=== PATIENT | male | born 1985 | race Caucasian/White ===

== ENCOUNTER 2019-05-20 22:59 | Inpatient (IN) | payer SELFPAY ==
[2019-05-20 23:04] VITALS: BP 132/104; PULSE 120; RESP 16; TEMP 37; O2SAT 99; BMI 24.3
--- NOTE | 2019-05-21 00:01 | ECG_ITS ---
Measurements Intervals [place] Rate: 80 P: 64 KS: 168 QRS: 58 QRSD: 113 T: 51 QT: 386 QTc: 448 SINUS RHYTHM POSSIBLE LATERAL MYOCARDIAL INFARCTION [30 ms Q WAVE IN I/aVL/V5/V6], PROBABLY OLD Compared to ECG 02/28/2019 22:24:04 Sinus tachycardia no longer present Myocardial infarct finding still present Electronically Signed On 05-22-2019 0:21:02 CENTRIFUGAL CASTING MACHINE OPERATOR by Elissa Murdock M.D. [email or web address]
--- NOTE | 2019-05-21 00:07 | PC.NURSE ---
patient stated he has been having SI intermittently, stated he used IV heroin and meth 2 days ago in attempt to commit suicide
[2019-05-21 00:23] LABS: Basophils # 0.1 10^3/uL (0.0-0.1); Basophils % 0.5 %; Eosinophils # 0.1 10^3/uL (0.0-0.8); Hematocrit 43.5 % (42.0-52.0); Hemoglobin 14.5 g/dL (11.7-16.6); Lymphocytes # 3.2 10^3/uL (0.8-4.8); Lymphocytes % 34.8 %; Mean Corpuscular HGB Conc 33.3 g/dL (30.0-36.0); Mean Corpuscular Hemoglobin 29.8 pg (28.0-34.0); Mean Corpuscular Volume 89.3 fL (80-94); Mean Platelet Volume 11.6 fL (7.4-10.4); Monocytes # 0.7 10^3/uL (0.2-0.9); Monocytes % 7.9 %; Neutrophils # 5.2 10^3/uL (1.8-7.7); Neutrophils % 55.6 %; Nucleated Red Blood Cells % 0 %; Platelet Count 308 10^3/cmm (130-400); Red Blood Count 4.87 10^6/uL (4.1-5.3); Red Cell Distribution Width 12.1 % (12.1-15.1); White Blood Count 9.3 10^3/uL (4.0-10.0)
[2019-05-21 00:33] LABS: Alanine Aminotransferase 19 U/L (0-41); Albumin Level 4.1 g/dL (3.5-5.2); Alkaline Phosphatase 132 IU/L (40-130); Anion Gap 15.6 (5-19); Aspartate Amino Transferase 25 U/L (0-40); Blood Urea Nitrogen 10 mg/dL (6-20); Calcium 10.1 mg/dL (8.5-10.5); Carbon Dioxide 26 mmol/L (22-29); Chloride 98 mmol/L (98-107); Creatinine Clr Calc Pharmacy 136.0705; Globulin 3.1 g/dL (1.3-4.6); Glucose 120 mg/dL (65-115); Potassium 3.6 mmol/L (3.5-5.1); Sodium 136 mmol/L (136-145); Total Bilirubin 0.6 mg/dL (0.15-1.2); Total Protein 7.2 g/dL (6.6-8.7)
[2019-05-21 00:35] LABS: Acetaminophen < 5.0 ug/mL (10-30); Alcohol Level < 10 mg/dL (0-10); Salicylate < 0.3 mg/dL (3-10)
--- NOTE | 2019-05-21 01:02 | W.ED.ANXIETY ---
HPI - Anxiety General: Chief Complaint: Anxiety Stated Complaint: SI, Anxiety Time Seen by Provider: 05/20/19 23:37 Source: patient Mode of arrival: ambulatory Limitations: no limitations History of Present Illness: HPI narrative: Patient is a 33-year-old male who presents to ED today with complaints of anxiety and suicidal ideations. Patient states that he just feels drained . He reports yesterday he tried to purposely overdose on heroin. He reports also doing methamphetamine. He is supposed to be taking Suboxone but has missed his clinic appointments and therefore has relapsed back to taking heroin. He denies suicidal or homicidal ideations. He tells me at one point he believes over the past few days he has had seizures. He tells me he has had seizures previously but has never had any neurology evaluation for these. MD complaint: anxiety and other (Depression, suicidal ideation) Onset (ago): day(s) Associated symptoms: Deny chest pain, chills, fever(s), headache(s), malaise, nausea, palpitations, syncope or vomiting Review of Systems Const: Denies: fever, chills, body aches, change in appetite, change in weight, fatigue or malaise Eyes: Denies: change in vision or blurry vision ENMT: Denies: enlarged tonsils or painful swallowing Card: Denies: chest pain, palpitations, irregular heart rhythm, edema, lightheadedness, syncope or pre-syncope Resp: Denies: shortness of breath, productive cough or chest congestion GI: Denies: abdominal pain, nausea, vomiting, vomiting blood or diarrhea : Denies: flank pain, difficulty urinating, painful urination, urinary frequency or urinary urgency Musc: Denies: neck pain or back pain Skin/Breast: Denies: rash Neuro: Denies: headache Psych: Reports: anxiety, depression, hopelessness and suicidal ideation; Denies: visual hallucinations, auditory hallucinations or homicidal ideation PFSH ED PFSH: Statuses (acute, chronic, etc) shown below reflect problem list status as previously entered and may not be historically accurate Social History Smoking and tobacco status: current every day smoker Physical Exam Const: COMMON NORMALS: no apparent distress, oriented x3, no limitations and alert Resp: COMMON NORMALS: normal respiratory effort and clear to auscultation bilaterally AUSCULTATION: clear to auscultation bilaterally Cardio: COMMON NORMALS: regular rate and regular rhythm RATE: regular rate RHYTHM: regular rhythm Neuro: COMMON NORMALS: oriented x3, CN's II-XII intact bilaterally, moves all extremities, no focal motor deficits and no sensory deficits noted SENSORIUM/ORIENTATION: Yes alert Psych: COMMON NORMALS: mental status grossly normal, cooperative, denies hallucinations and denies homicidal ideation APPEARANCE: Yes grossly normal ATTITUDE: Yes calm ACTIVITY/MOTOR BEHAVIOR: Yes appropriate eye contact SPEECH: Yes pressured ATTENTION/CONCENTRATION: Yes attention grossly intact and Yes concentration grossly intact MEMORY/COGNITION: Yes memory grossly intact and Yes cognition grossly intact INSIGHT: fair JUDGEMENT: fair Course Consultations: Consultation #1: Dr. Lowry-accepts to NPU Time: 01:14 Vital Signs: Vital signs: Vital Signs Temperature 98.6 F 05/20/19 23:04 Pulse Rate 120 H 05/20/19 23:04 Respiratory Rate 16 05/20/19 23:04 Blood Pressure 132/104 05/20/19 23:04 Pulse Oximetry 99 05/20/19 23:04 MDM - Anxiety Lab Data: Labs: Lab Results 05/21/19 05/21/19 Range/Units 00:10 00:10 WBC 9.3 (4.0-10.0) 10^3/ uL RBC 4.87 (4.1-5.3) 10^6/u L Hgb 14.5 (11.7-16.6) g/dL Hct 43.5 (42.0-52.0) % MCV 89.3 (80-94) fL MCH 29.8 (28.0-34.0) pg MCHC 33.3 (30.0-36.0) g/dL RDW 12.1 (12.1-15.1) % Plt Count 308 (130-400) 10^3/c mm MPV 11.6 H (7.4-10.4) fL Neut % (Auto) 55.6 % Lymph % (Auto) 34.8 % [place] % (Auto) 7.9 % Eos % (Auto) 1.0 % Baso % (Auto) 0.5 % Neut # (Auto) 5.2 (1.8-7.7) 10^3/u L Lymph # (Auto) 3.2 (0.8-4.8) 10^3/u L Hays # (Auto) 0.7 (0.2-0.9) 10^3/u L Eos # (Auto) 0.1 (0.0-0.8) 10^3/u L Baso # (Auto) 0.1 (0.0-0.1) 10^3/u L Nucleated RBC % (a uto) 0 % Nucleated RBCs # 0.0 /100WBC Sodium 136 (136-145) mmol/L Potassium 3.6 (3.5-5.1) mmol/L Chloride 98 (98-107) mmol/L Carbon Dioxide 26 (22-29) mmol/L Anion Gap 15.6 (5-19) BUN 10 (6-20) mg/dL Creatinine 0.8 (0.7-1.2) mg/dL GFR Calculation 110.0 (90-130) mL/min Glucose 120 H (65-115) mg/dL Calcium 10.1 (8.5-10.5) mg/dL Total Bilirubin 0.6 (0.15-1.2) mg/dL AST 25 (0-40) U/L ALT 19 (0-41) U/L Alkaline Phosphata se 132 H (40-130) IU/L Total Protein 7.2 (6.6-8.7) g/dL Albumin 4.1 (3.5-5.2) g/dL Globulin 3.1 (1.3-4.6) g/dL Salicylates < 0.3 L (3-10) mg/dL Acetaminophen < 5.0 L (10-30) ug/mL Ethyl Alcohol < 10 (0-10) mg/dL Discharge Plan Discharge Patient Disposition: Xfer Psychiatric Hosp Clinical Impression: Polysubstance abuse, Suicidal ideation Condition: Stable Prescriptions: No Action Prozac 40 mg Capsule 40 mg PO DAILY RF: 0 gabapentin 300 mg Capsule 300 mg PO TID RF: 0 Suboxone 8-2 mg Film 1 film SUBLINGUAL DAILY RF: 0 Coding Level of Care Code ED Gas Distribution Supervisor for Chg Fwd Exam Problem Focused
[2019-05-21 01:15] LABS: Barbiturates Screen Urine Negative (Negative); Benzodiazepines Screen Urine Negative (Negative); Cocaine Screen Urine Negative (Negative); Opiate Screen Urine Negative (Negative); PCP Screen Urine Negative (Negative); THC Screen Urine Positive (Negative)
[2019-05-21 01:30] LABS: Amphetamines Screen Urine Positive (Negative)
[2019-05-21 01:59] VITALS: BP 131/75; PULSE 88; RESP 16; O2SAT 98
[2019-05-21 02:11] VITALS: BP 127/81; PULSE 113; RESP 18; TEMP 36.9; O2SAT 99
[2019-05-21 06:00] VITALS: BP 106/72; PULSE 103; RESP 16; TEMP 36.2; O2SAT 99
[2019-05-21] MEDS: fluoxetine 20 mg Capsule 40 MG PO (08:17)
[2019-05-21] MEDS: gabapentin 300 mg Capsule PO ×3 (08:17→21:22)
[2019-05-21 14:00] VITALS: BP 128/87; O2SAT 98
--- NOTE | 2019-05-21 14:42 | P.HP_ITS ---
Providers/Chief Complaint Admitting Physician: Saeid Lowry MD Chief Complaint: anxiety HPI NPU History of Present Illness Lukasz Head is a 33 year old male who presents after presenting to the emergency room with reports of suicidal thoughts and being unsure what he is going to do in his situation. This is his seventh inpatient hospitalization here at [facility] [place] since 12/22/2017. His most recent ones have been very quick and often ended an AMA as he is trying to get back on Suboxone, has no resources and has struggled with the policy we have only prescribing Suboxone to people who have and active outpatient prescription or an outpatient physician who will identify themselves as the person that will prescribe doses after discharge from the hospital. He reports that since he got discharged right before Thanksgiving that he has been in survival mode. He reports he initially was using and buying Suboxone from off the street but the cost became prohibitive and so he went back to the other opiates/heroin. He reports that right now depressed, off his medication, struggling from anxiety and not really knowing what he can do. He reports that he contacted Dr. Hightower in [place] who reported a willingness to be his prescriber after discharge. We discussed a plan to contact him or her first thing Thursday morning. We agreed to restart his previous medication. We did have a discussion about the growing concern about the co-administration of Neurontin especially in high doses with opiates from a standpoint of concerns of lethality. We reviewed information from his last hospitalization some included below and he denies any significant changes in his psychosocial circumstances. Psychiatric history: He has 10+ hospitalizations with 7 here at [facility] [place]. He denies having that many different medication trials however. Substance abuse history: He reports smoking half pack cigarettes a day, that he doesn't drink alcohol often, that he has marijuana every once in a while, it is not use cocaine, but he has methamphetamine sometimes, opiates are a daily challenge and he denies benzodiazepines with any regularity. He reports he has been to 4-5 rehabs in he's never had a DUI. Family history: He's not sure about his family's mental health issues. He reports addiction issues on both sides of family. He reports that he does have a first cousin who committed suicide on his mom's side. Developmental history: He denies any issues with his mother's or delivery of him, he learned to walk and talk to him at his development milestones on time, he denies speech therapy, learning support, emotional support or special education classes. Psychosocial history: He reports his mother and father were together when he was born with a fairly young in his life. He is the only product of their union. He has a half-brother through his mom and 2 half-sisters through his dad. He reports his childhood was also when he denies any emotional, physical or sexual abuse. He graduated from high school. Yet associates degree. 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 He endorses being heterosexual with his longest relationship between 3-1/2 years. He's been one time which was January 2019 and has 1 stepdaughter from that union that is 3 years old but he denies any biological children. Never in the and he denies any congregation belief system. 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 He currently lives in a trailer with his and stepdaughter. Legal history: He has been in [facility] 2 times the longest time being 5-1/2 years for forgery. Per his March 01 hospitalization with this commercial loan underwriter: History of Present Illness Date of Service: Mar 01, 2019 Chief Complaint: I need to get back on my medications. HPI: Lukasz presented to the inpatient unit after he was seen in the emergency room endorsing suicidal thoughts and a need to get his medication or he did not know what he would do with himself. He presented to the unit and was very driven to get Suboxone prescribed. We explained to him the policy that we only prescribe Suboxone and most other medications upon request when those medications are in fact currently being prescribed. In other words, the person has an active script. Additionally, with Suboxone if the person has a provider and they do not have an active script, but that provider is prepared to be the person providing the prescription at the time of discharge, we are also open to working with that outpatient provider. He was unable after many hours were spent by nursing and this commercial loan underwriter to find or connect with his last prescriber, so we were unable to find set prescriber. We had made arrangements for treatment and were looking forward to assisting him moving forward, however later in the evening he determined that if he was not going to get the Suboxone he wanted to leave against medical advice. He was absent in lethality during his interview. He denied any interest in hurting himself or anyone else, only wanted to get back on track with his medication and he felt the Suboxone was the only chance that he had. He is known to the NPU from previous hospitalizations. We reviewed that information during his evaluation, and he denied any significant changes at this time. Per ED eval: HISTORY OF PRESENT ILLNESS Chief Complaint: SEIZURE. This occurred today. The patient has recovered. Seizure was not witnessed. Had a single isolated seizure. Not obtunded post-ictally. Did not recently change anticonvulsant medication. Patient states that he's not certain whether he had a seizure or not but believes he may have. He's had seizures before although not consistently when he would come off of alcohol. Patient states he's been having a hard time with depression and anxiety as he's cycle through addiction to opiates and alcohol. He adamantly denies any current homicidal or suicidal ideation. Similar symptoms previously. None. Recent medical care: The patient was seen recently at this facility (02/19/19 possible seizures). REVIEW OF SYSTEMS No fever, chest pain, palpitations, cough or difficulty breathing. No eye irritation, sore throat, abdominal pain, nausea or diarrhea. No black stools, difficulty with urination, skin rash, enlarged lymph nodes or vomiting. No bloody stools or joint pain. All other systems reviewed and are negative. PAST HISTORY See nurses notes. Hypertension. Seizures. Hepatitis. Mental illness. Depression. ( Psychosis). Surgeries: Fracture repair. Left upper extremity fracture repair. SOCIAL HISTORY Smoker- current status unknown (tobacco). Never smoker. Heavy alcohol use; consumes liquor by the bottle daily. History of drug use hx: heroin. ADDITIONAL NOTES The nursing notes have been reviewed. PHYSICAL EXAM Vital Signs: 02/28/2019 16:55 BP: 143/114. HR: 132. RR: 18. O2 saturation: 99%. Temp: 98.8 F. Pain level now: 0/10. Appearance: Alert. No acute distress. Eyes: Pupils equal, round and reactive to light. No nystagmus. Extraocular movements normal. ENT: Normal ENT inspection. TM's normal. Moist mucous membranes. Pharynx normal. Neck: Normal inspection. Neck supple. CVS: Normal heart rate and rhythm. Heart sounds normal. Pulses normal. Respiratory: No respiratory distress. Breath sounds normal. Abdomen: Soft and nontender. No organomegaly. Back: Normal inspection. Skin: Skin warm. Normal skin color. No rash. Extremities: Extremities exhibit normal ROM. No lower extremity edema. Neuro: Alert. Oriented X 3. Mood/affect normal. Speech normal. Cranial nerves normal (as tested). No cerebellar findings. No motor deficit. No sensory deficit. LABS, X-RAYS, AND EKG EKG: EKG time: (0114). Normal sinus rhythm. Rate: 108. Normal P waves. Normal JOSUÉ. Normal QRS complex. Normal axis. Normal ST and T waves, QT and QTc. Interpretation time: 0114. Laboratory Tests: Laboratory tests have been ordered, with results reviewed and considered in the medical decision making process. Urine Drug Screen: (MARBELLA: 03/01/2019 00:07)( MsgRcvd 03/01/2019 00:09) In Progress Comments: Room Number: 4 History of Present Illness Date of Service: Jan 08, 2019 Chief Complaint: I've been drinking a lot. I will get back on my buprenorphine. HPI: Lukasz Head is a 33-year-old male with a well-known history of polysubstance abuse who presented to the emergency room as described below. He states today that it is his intent to detox from the alcohol in preparation for his return to the [facility]. He has an appointment scheduled in 5 days. He reports that he has been free of narcotic use. He denies suicidal or homicidal ideation. He denies presence of auditory or visual hallucinations. He is a voluntary patient. We agreed on the plan below. Emergency room notes:Chief Complaint: GOT THE SHAKES . Wants to stop drinking. Wants to enter detox program. Symptoms started 3 days ago. The patient has had nausea, vomiting and seizure activity. The symptoms are described as severe. No injuries noted. Lukasz is a nice 33-year-old male who comes in requesting help with detox from alcohol. Patient states he has a history of opiate and methamphetamine abuse but the opiate problem is the biggest deal for him. He states that he uses alcohol to self medicate for pain. He states that he has an alcoholic and cannot stop on his own. He did try again to do so a day and a half ago but had a seizure. He denies any injuries from the seizure. Patient currently says he feels very sick, nervous and not right . Past mental health history Patient was admitted to the same unit in August 2018. Records provided the following information: it was discovered that he had been in [facility] outpatient program and had been receiving Suboxone but that he was frequently noncompliant and had a pattern of positive urine drug screens. It is not known whether he had been kicked out of the program or what his status was in the program. They did confirm that he did have a an appointment in 4 days in the outpatient service. However it was not clear whether they were willing to restart Suboxone. Verbal report from a member of that program was that they were insisting that he go to inpatient rehabilitation if he was to continue services there. His urine drug screen was positive for amphetamines and and benzodiazepines but negative for barbiturates. Blood alcohol level was below measurable limit. Patient remained for 3 days and then left AGAINST MEDICAL ADVICE. Meds NPU Home Medications Medication Instructions Recorded Confirmed Type buprenorphine-naloxone [Suboxone] 1 film SUBLINGUAL DAILY 05/20/19 05/20/19 History fluoxetine [Prozac] 40 mg PO DAILY 05/20/19 05/20/19 History gabapentin 300 mg PO TID 05/20/19 05/20/19 History Allergies Allergy/AdvReac Type Severity Reaction Status Date / Time NSAIDS (Non-Steroidal Allergy ALGY-Anaphy Verified 05/20/19 23:10 Anti-Inflamma laxis PFSH NPU PFSH: Statuses (acute, chronic, etc) shown below reflect problem list status as previously entered and may not be historically accurate Social History Smoking and tobacco status: current every day smoker Mental Status Exam MSE Comments: This is a well-nourished well-developed white male with adequate dress grooming and eye contact. No abnormal movements except for mild psychomotor retardation. Cooperative exam in no acute distress. Speech is decreased rate and volume. Mood described as depressed and feeling horrible, affect congruent. Thought process organized. Thought content: Patient denied any suicidal or homicidal ideation today, there were no delusions reported noted, he denied any auditory or visual hallucinations. Attention and concentration were intact and memory appeared reliable but none were formally tested. He is alert and oriented ?3. Insight and judgment is fair. Vitals/I&O/Wt Last Vital Signs Temp 97.2 F L 05/21/19 06:00 Pulse 103 H 05/21/19 06:00 Resp 16 05/21/19 06:00 BP 128/87 05/21/19 14:00 Pulse Ox 98 05/21/19 14:00 Weight last 48 hrs Weight 77.111 kg Data NPU : 05/21/19 00:10 05/21/19 00:10 A&P Assessment and plan (1) Anxiety: Is a 33-year-old white male with a history of anxiety, depression, opiate addiction and significant financial challenges for access to care who presents as he has been most recent hospitalizations with significant opiate addiction desires management through a Suboxone program but not being able to get into one since his last visit here in 2019. 1. Continue current medications. With includes restarting Prozac and Neurontin. 2. Encourage individual, group and milieu therapy. 3. Continue every 15 minute checks for safety. 4. Offered comfort measures for his opiate withdrawal which he refused. 5. Will restart Suboxone if connected with outpatient doctor on Thursday. Status: Acute Code(s): F41.9 - Anxiety disorder, unspecified (2) Opiate dependence: Status: Acute Code(s): F11.20 - Opioid dependence, uncomplicated (3) Depression: Status: Acute Code(s): F32.9 - Major depressive disorder, single episode, unspecified Involuntary Hold Information 96 Hour Hold: 96 Hour Involuntary Admission: No Attestations NPU Medical Necessity Statement*: Inpatient hospitalization is medically necessary in the clinically appropriate intervention at this time. Patient will be in the hospital for over 2 mid nights. We will restart medications, monitor and titrate to effect as indicated. Likely length of stay 3-5 days. Coding Level of Care Code Acute Metal Die Finisher for Luisa Michael Diagnoses Anxiety F41.9 Opiate dependence F11.20 Depression F32.9
[2019-05-21 20:41] VITALS: BP 112/74; PULSE 92; RESP 16; TEMP 36.7; O2SAT 99
[2019-05-22 06:00] VITALS: BP 121/63; PULSE 74; RESP 14; TEMP 36.7; O2SAT 97; BMI 25.8
[2019-05-22] MEDS: gabapentin 300 mg Capsule PO ×2 (08:55→15:43)
[2019-05-22] MEDS: fluoxetine 20 mg Capsule 40 MG PO (08:55)
[2019-05-22 13:26] VITALS: BP 140/89
[2019-05-22 14:08] VITALS: BP 106/63; PULSE 113; RESP 18; TEMP 36.9; O2SAT 97
[2019-05-22] MEDS: hyDROXYzine 25 mg Capsule 50 MG PO (15:12)
--- NOTE | 2019-05-22 15:18 | P.PN_ITS ---
Subjective NPU Subjective: Interval history: Lukasz presents today reporting that he is doing as good as can be expected with the resumption of his medications. He continues to endorse withdrawal symptoms from opiates. However today he reports a willingness to take some clonidine and Seroquel as well as utilized the Vistaril is available when necessary for withdrawal symptoms after we discussed the risks, benefits and alternatives to those interventions for his withdrawal. We discussed a plan to call [facility] as well as his reported outpatient provider for Suboxone to determine whether or not they have availability to begin treating him with allow us to treat him here as long as they will agree to be in charge of his outpatient prescription at discharge. He reports struggling with eating and sleeping. Mental Status Exam MSE Comments: This is a well-nourished well-developed white male with adequate dress grooming and eye contact. No abnormal movements except for mild psychomotor retardation. Cooperative exam in no acute distress. Speech is decreased rate and volume. Mood described as feeling horrible, affect congruent. Thought process organized. Thought content: Patient denied any suicidal or homicidal ideation today, there were no delusions reported noted, he denied any auditory or visual hallucinations. Attention and concentration were intact and memory appeared reliable but none were formally tested. He is alert and oriented ?3. Insight and judgment is fair. Vitals/I&O/Wt Last Vital Signs Temp 98.4 F 05/22/19 14:08 Pulse 113 H 05/22/19 14:08 Resp 18 05/22/19 14:08 BP 106/63 05/22/19 14:08 Pulse Ox 97 05/22/19 14:08 Weight last 48 hrs Weight 81.76 kg Weight 77.111 kg Data NPU : 05/21/19 00:10 05/21/19 00:10 A&P Assessment and plan (1) Opioid withdrawal: Is a 33-year-old white male with a history of anxiety, depression, opiate addiction and significant financial challenges for access to care who presents as he has been most recent hospitalizations with significant opiate addiction desires management through a Suboxone program but not being able to get into one since his last visit here in 2019. 1. Continue current medications. 2. Encourage individual, group and milieu therapy. 3. Continue every 15 minute checks for safety. 4. Start clonidine, Seroquel, and encourage Vistaril for assistance with withdrawal symptoms while we figure out whether he is going to have resources in place to restart the Suboxone in the hospital. 5. Will restart Suboxone if connected with outpatient doctor on Thursday. Status: Acute Code(s): F11.23 - Opioid dependence with withdrawal Involuntary Hold Information 96 Hour Hold: 96 Hour Involuntary Admission: No Attestations NPU Medical Necessity Statement*: Inpatient hospitalization is medically necessary in the clinically appropriate intervention at this time. We will restart medications, monitor and titrate to effect as indicated. Likely length of stay 2-4 days. Coding Level of Care Code Acute District Service Manager for Luisa Michael Diagnoses Opioid withdrawal F11.23
[2019-05-22 15:22] VITALS: BP 138/82
--- NOTE | 2019-05-22 15:23 | PC.NURSE ---
NURSE NOTE CLIENT GIVEN 50MG OF VISTARIL ORDERED PRN FOR ANXIETY. STAFF WILL CONTINUE TO MONITOR.
[2019-05-22] MEDS: nicotine 2 mg Gum BUCCAL (15:43)
--- NOTE | 2019-05-22 16:01 | PC.NURSE ---
nurses note; prn anxiety med effective.
[2019-05-22 21:42] VITALS: BP 111/66; PULSE 102; RESP 19; TEMP 36.8; O2SAT 98
--- NOTE | 2019-05-22 22:09 | PC.NURSE ---
Patient refused medications
[2019-05-23 06:00] VITALS: BP 125/83; PULSE 89; RESP 19; TEMP 36.8; O2SAT 98
--- NOTE | 2019-05-23 07:19 | P.PN_ITS ---
Subjective NPU Subjective: Interval history: Lukasz presents today somewhat frustrated as we are continuing to try to reach out to his outpatient Suboxone providers to see if they will work with him to create an environment where he could get Suboxone now and they would manage the prescription once he was discharged. We have not heard back from those individuals yet. Otherwise he agreed to take the withdrawal medications and he reports they are helping somewhat. He is sleeping more. He reports he is eating okay. Mental Status Exam MSE Comments: This is a well-nourished well-developed white male with adequate dress grooming and eye contact. No abnormal movements except for mild psychomotor retardation. Cooperative exam in no acute distress. Speech is decreased rate and volume. Mood described as feeling a little better, affect congruent. Thought process organized. Thought content: Patient denied any suicidal or homicidal ideation today, there were no delusions reported noted, he denied any auditory or visual hallucinations. Attention and concentration were intact and memory appeared reliable but none were formally tested. He is alert and oriented ?3. Insight and judgment is fair. Vitals/I&O/Wt Last Vital Signs Temperature 98.4, pulse 94, respiration 18, pulse ox 99%, blood pressure 124/79. Data NPU : 05/21/19 00:10 05/21/19 00:10 A&P Additional A&P Information This is a 33-year-old white male with a history of anxiety, depression, opiate addiction and significant financial challenges for access to care who presents as he has been most recent hospitalizations with significant opiate addiction desires management through a Suboxone program but not being able to get into one since his last visit here in 2019. 1. Continue current medications. 2. Encourage individual, group and milieu therapy. 3. Continue every 15 minute checks for safety. 4. Will restart Suboxone if connected with outpatient doctor. Involuntary Hold Information 96 Hour Hold: 96 Hour Involuntary Admission: No Attestations NPU Medical Necessity Statement*: Inpatient hospitalization is medically necessary in the clinically appropriate intervention at this time. We will restart medications, monitor and titrate to effect as indicated. Likely length of stay 1-3 days. Coding Level of Care Code Acute Re Recording Mixer for Luisa Michael
[2019-05-23] MEDS: gabapentin 300 mg Capsule PO (09:31)
[2019-05-23] MEDS: fluoxetine 20 mg Capsule 40 MG PO (09:31)
[2019-05-23 14:00] VITALS: BP 124/79; PULSE 94; RESP 18; TEMP 36.9; O2SAT 99
[2019-05-23] MEDS: nicotine 2 mg Gum BUCCAL (14:02)
[2019-05-23] MEDS: OLANZapine ODT 5 MG TABLET PO (14:02)
--- NOTE | 2019-05-23 14:02 | PC.NURSE ---
PRN ZYPREXA ZYDIS ZYPREXA ZYDIS 5MG PO PER PT C/O AGITATION/ANXIETY. WILL CONTINUE TO MONITOR FOR MEDICATION EFFECTIVENESS.
--- NOTE | 2019-05-23 15:00 | PC.NURSE ---
PRN ZYPREXA ZYDIS FOLLOW UP MEDICATION EFFECTIVE. NO FURTHER C/O ANXIETY/AGITATION.
[2019-05-23 22:00] VITALS: BP 61/43; PULSE 90; RESP 20; TEMP 36.9; O2SAT 97
[2019-05-24 06:00] VITALS: BP 116/75; PULSE 81; RESP 18; TEMP 36.6; O2SAT 97
[2019-05-24] MEDS: gabapentin 300 mg Capsule PO ×3 (08:54→20:29)
[2019-05-24] MEDS: fluoxetine 20 mg Capsule 40 MG PO (08:54)
[2019-05-24] MEDS: nicotine 2 mg Gum BUCCAL (12:53)
[2019-05-24] MEDS: OLANZapine ODT 5 MG TABLET PO (13:17)
--- NOTE | 2019-05-24 13:31 | P.PN_ITS ---
Subjective NPU Subjective: Interval history: Lukasz presents today reporting that the withdrawal medications are helping as much as they can. He continues to have frustration with the rules about prescribing the Suboxone. He has been unable to get anyone to respond or he develops for his outpatient prescription moving forward. He reports that he is eating okay and sleeping fine. We discussed the fact that this insurance underwriter would not be returning tomorrow and that he would likely be discharged before I returned. Mental Status Exam MSE Comments: This is a well-nourished well-developed white male with adequate dress grooming and eye contact. No abnormal movements except for mild psychomotor retardation. Cooperative exam in no acute distress. Speech is decreased rate and volume. Mood described not too bad, affect congruent. Thought process organized. Thought content: Patient denied any suicidal or homicidal ideation today, there were no delusions reported noted, he denied any auditory or visual hallucinations. Attention and concentration were intact and memory appeared reliable but none were formally tested. He is alert and oriented ?3. Insight and judgment is fair. Vitals/I&O/Wt Last Vital Signs Temperature 97.8, pulse 81, respirations 18, pulse ox 97%, blood pressure 116/75. Data NPU : 05/21/19 00:10 05/21/19 00:10 A&P Additional A&P Information This is a 33-year-old white male with a history of anxiety, depression, opiate addiction and significant financial challenges for access to care who presents as he has been most recent hospitalizations with significant opiate addiction desires management through a Suboxone program but not being able to get into one since his last visit here in 2019. 1. Continue current medications. 2. Encourage individual, group and milieu therapy. 3. Continue every 15 minute checks for safety. 4. Will restart Suboxone if connected with outpatient doctor. Involuntary Hold Information 96 Hour Hold: 96 Hour Involuntary Admission: No Attestations NPU Medical Necessity Statement*: Inpatient hospitalization is medically necessary in the clinically appropriate intervention at this time. We will restart medications, monitor and titrate to effect as indicated. Likely length of stay 1-3 days. Coding Level of Care Code Acute Client Service Associate for Luisa Michael
[2019-05-24 13:37] VITALS: BP 128/82; PULSE 101; RESP 20; TEMP 36.8; O2SAT 97
[2019-05-24] MEDS: quetiapine 100 mg Tablet PO (20:29)
[2019-05-24 21:12] VITALS: BP 117/71; PULSE 80; RESP 19; TEMP 36.8; O2SAT 97
[2019-05-25 06:00] VITALS: BP 128/71; PULSE 82; RESP 20; TEMP 36.7; O2SAT 97
[2019-05-25] MEDS: gabapentin 300 mg Capsule PO ×3 (08:29→20:17)
[2019-05-25] MEDS: fluoxetine 20 mg Capsule 40 MG PO (08:29)
[2019-05-25 14:00] VITALS: BP 124/74; PULSE 106; RESP 20; TEMP 36.9; O2SAT 98
[2019-05-25] MEDS: nicotine 2 mg Gum BUCCAL ×3 (15:02→21:20)
--- NOTE | 2019-05-25 19:03 | P.PN_ITS ---
Subjective NPU Subjective: Interval history: The patient's having a rather difficult withdrawal. This is partly because he is refusing symptomatic meds as needed. He has had 3-1/2 years of clean and sober life in the past and knows that he can do it if he can just get through detox he pleads with me to have to prescribe Suboxone, for which I have not been trained and do not have JOHN permission. I called the pharmacy and speak to Gonzalo. We work out protocol of descending dosing of Pipest[place]. I encouraged the patient to use the symptomatic treatments involved in the COWS. He said he did not know what those medicines were and I suggested that he have a nurse educating him on what was available to him. He decided not to sign out AMA. Mental Status Exam MSE Comments: This is a 33-year-old male who is clearly dysphoric and uncomfortable. Mood is clearly dysphoric and affect mirrors his feelings. Thought processes are integrated and free of any racing, blocking or looseness of association. There is no evidence of psychosis, such as hallucinations, delusions, or ideas of reference. Speech is of normal rate and volume, without dysarthria, aprosody or pressure. Cognitive functions are intact. He has some insight into his disease and is able to make rational decisions concerning his health care. Vitals/I&O/Wt Last Vital Signs Temp 98.5 F 05/25/19 14:00 Pulse 106 H 05/25/19 14:00 Resp 20 H 05/25/19 14:00 BP 124/74 05/25/19 14:00 Pulse Ox 98 05/25/19 14:00 Data NPU : 05/21/19 00:10 05/21/19 00:10 A&P Additional A&P Information This is a 33-year-old male with opiate dependency. 1. Opiate dependency and withdrawal. 2. Polysubstance abuse disorder. He may be dramatizing but I just cannot send him out on the street, as the first use is often overdosed and very high risk. That and the ubiquitous and frequently lethal fentanyl adulteration. In any case, the patient will endure and work with my successor on his opiate addiction and hopefully find placement in a rehab program. Involuntary Hold Information 96 Hour Hold: 96 Hour Involuntary Admission: No Attestations NPU Medical Necessity Statement*: This patient has a long way to go on a hard jose road. I anticipate 5-7 midnights additional hospitalization. Time Spent in Patient Care: Greater than 35 minutes (>than 50% of time spent in counselling and/or direct pt care on unit) . With various consultation and research I spent at least 80 minutes on this case. Coding Level of Care Code Acute Journeyman Pipefitter for Luisa Michael
[2019-05-25 19:56] VITALS: BP 159/112; PULSE 114; RESP 18; TEMP 37.1; O2SAT 98
[2019-05-25 20:03] VITALS: BP 159/112
[2019-05-25] MEDS: cloNIDine 0.1 mg Tablet PO (20:03)
[2019-05-25] MEDS: HYDROcodone-acetaminophen 10-325 mg Tablet 1 TAB PO (20:17)
[2019-05-25] MEDS: hyDROXYzine 25 mg Capsule 50 MG PO (21:59)
[2019-05-26] VITALS (7 sets, daily range): BP systolic 102–118; BP diastolic 64–72; PULSE 73–78; RESP 17–18; TEMP 36.6–36.9; O2SAT 97–99
[2019-05-26] MEDS: cloNIDine 0.1 mg Tablet PO ×2 (06:12→11:29)
[2019-05-26] MEDS: HYDROcodone-acetaminophen 10-325 mg Tablet 1 TAB PO ×2 (06:12→12:16)
[2019-05-26] MEDS: hyDROXYzine 25 mg Capsule 50 MG PO (07:33)
--- NOTE | 2019-05-26 07:33 | PC.NURSE ---
PRN VISTARIL VISTARIL 50MG PO PER PT C/O ANXIETY. WILL CONTINUE TO MONITOR FOR MEDICATION EFFECTIVENESS.
--- NOTE | 2019-05-26 08:30 | PC.NURSE ---
PRN VISTARIL FOLLOW UP MEDICATION EFFECTIVE. NO FURTHER C/O ANXIETY.
[2019-05-26] MEDS: fluoxetine 20 mg Capsule 40 MG PO (08:35)
[2019-05-26] MEDS: gabapentin 300 mg Capsule PO ×3 (08:35→21:21)
[2019-05-26] MEDS: nicotine 2 mg Gum BUCCAL ×4 (09:48→21:47)
--- NOTE | 2019-05-26 11:29 | PC.NURSE ---
Addendum entered by Jesi Martinez LPN 05/26/19 12:25: MEDICATION EFFECTIVE. NO S/S OF WITHDRAWAL. Original Note: PRN CLONIDINE CLONIDINE 0.1 MG PO FOR C/O WITHDRAWAL. WILL CONTINUE TO MONITOR FOR MEDICATION EFFECTIVENESS.
--- NOTE | 2019-05-26 12:49 | P.PN_ITS ---
Subjective NPU Subjective: Interval history: Patient requesting restart of previously effective medication regmien. He describes events since ou rlast encounter in February 2019. they are c/w those known about him. the major barrier to him remaining clean and sober does seem to be one of access to treatment on an outpatient basis. Mental Status Exam MSE Comments: Discharge Mental Status Exam: Appearance: hygiene is good; no gross neurological deficits., gait is unremarkable; AIMS=0 Speech: Speech is of normal rate and rhythm and easily understood. Thought processes: Thought processes are abstract. Judgment is adequate for safety. Associations: intact Psychotic processes: There is no indication of guarding or paranoia. There is no attention to the internal stimuli. Auditory and visual hallucinations are denied. Judgment: Insight is fair. Problem solving skills are adequate for safety. Orientation: The patient is oriented to person, place time and situation. Memory: no deficits noted in immediate, intermediate, or remote spheres. Attention: The patient is alert and interpersonally engaged. Language: Verbalizations are coherent. Fund of knowledge: Fund of knowledge is adequate. Affect/Mood: Affect is consistent with a euthymic mood. denied suicidal ideation Affective range is appropriate. Psychosis: perception unimpaired except through cognitive distortion; reality t esting intact. Cognition: Patient Appearance: Disheveled/Poor Hygiene Level of Consciousness: Awake, Alert, Appropriate and Follows Commands Patient Cognition Impaired: No Ability to Follow Directions: Good Patient Orientation (long list): Person, Place and Time Comprehension Ability: No Impairment Hallucination Type: None Thought Process: Appropriate Anxiety: Anxiety Triggers: Anxious Thoughts and Fear of Panic Attacks Affect: Affect Description: Calm Behavior: Patient Behavior: Cooperative Speech Pattern: Clear Voice Loudness: Normal Vitals/I&O/Wt Last Vital Signs Temp 98 F 05/26/19 06:00 Pulse 73 05/26/19 06:00 Resp 17 05/26/19 06:00 BP 118/71 05/26/19 11:29 Pulse Ox 98 05/25/19 19:56 Data NPU : 05/21/19 00:10 05/21/19 00:10 A&P Assessment and plan (1) Opioid withdrawal: Is a 33-year-old white male with a history of anxiety, depression, opiate addiction and significant financial challenges for access to care who presents as he has been most recent hospitalizations with significant opiate addiction desires management through a Suboxone program but not being able to get into one since his last visit here in 2019. 1. Continue current medications. 2. Encourage individual, group and milieu therapy. 3. Continue every 15 minute checks for safety. 4. Start clonidine, Seroquel, and encourage Vistaril for assistance with with drawal symptoms while we figure out whether he is going to have resources in place to restart the Suboxone in the hospital. 5. Will restart Suboxone if connected with outpatient doctor on Thursday. hospital day #4: Will restart Suboxone 11/12 twice a day. We'll facilitate transfer to outpatient treatment program when available. Will continue fluoxetine 40 mg daily and gabapentin 300 mg 3 times a day. Status: Acute Code(s): F11.23 - Opioid dependence with withdrawal Additional A&P Information This is a 33-year-old male with opiate dependency. 1. Opiate dependency and withdrawal. 2. Polysubstance abuse disorder. He may be dramatizing but I just cannot send him out on the street, as the first use is often overdosed and very high risk. That and the ubiquitous and frequently lethal fentanyl adulteration. In any case, the patient will endure and work with my successor on his opiate addiction and hopefully find placement in a rehab program. Involuntary Hold Information 96 Hour Hold: 96 Hour Involuntary Admission: No Attestations NPU Medical Necessity Statement*: Patient will remain in the hospital 1 more night until placement can be facilitated. Coding Level of Care Code Acute Epic Anesthesia Analyst for Luisa Michael Diagnoses Opioid withdrawal F11.23
[2019-05-26] MEDS: buprenorphine-naloxone 4-1 mg Film 2 EACH SUBLINGUAL (17:29)
[2019-05-26] MEDS: OLANZapine ODT 5 MG TABLET PO (21:21)
[2019-05-27] MEDS: nicotine 2 mg Gum BUCCAL (04:35)
--- NOTE | 2019-05-27 12:55 | P.DS_ITS ---
Diagnoses at Discharge Discharge Diagnosis (1) Opioid withdrawal: Status: Acute Reason for Visit Reason for Visit: Reason For Visit: anxiety Hospital Course Discharge Summary Lukasz Head is a 33 year old male who presents after presenting to the emergency room with reports of suicidal thoughts and being unsure what he is going to do in his situation. This is his seventh inpatient [place] [facility] [place]. His most recent ones have been very quick and often ended an AMA as he is trying to get back on Suboxone, has no resources and has struggled with the policy we have only prescribing Suboxone to people who have and active outpatient prescription or an outpatient physician who will identify themselves as the person that will prescribe doses after discharge from the hospital. He reports that since he got discharged right before Thanksgiving that he has been in survival mode. He reports he initially was using and buying Suboxone from off the street but the cost became prohibitive and so he went back to the other opiates/heroin. He reports that right now depressed, off his medication, struggling from anxiety and not really knowing what he can do. He reports that he contacted Dr. Hightower in [place] who reported a willingness to be his prescriber after discharge. We discussed a plan to contact him or her first thing Thursday morning. We agreed to restart his previous medication. We did have a discussion about the growing concern about the co-administration of Neurontin especially in high doses with opiates from a standpoint of concerns of lethality. We reviewed information from his last hospitalization some included below and he denies any significant changes in his psychosocial circumstances. (1) Anxiety: Is a 33-year-old white male with a history of anxiety, depression, opiate addiction and significant financial challenges for access to care who presents as he has been most recent hospitalizations with significant opiate addiction desires management through a Suboxone program but not being able to get into one since his last visit here in 2019. 1. Continue current medications. With includes restarting Prozac and Neurontin. 2. Encourage individual, group and milieu therapy. 3. Continue every 15 minute checks for safety. 4. Offered comfort measures for his opiate withdrawal which he refused. 5. Will restart Suboxone if connected with outpatient doctor on Thursday. Status: Acute Code(s): F41.9 - Anxiety disorder, unspecified (2) Opiate dependence: Status: Acute Code(s): F11.20 - Opioid dependence, uncomplicated (3) Depression: Status: Acute Code(s): F32.9 - Major depressive disorder, single episode, unspecified Hospital Day #3: Interval history: Lukasz presents today reporting that he is doing as good as can be expected with the resumption of his medications. He continues to endorse withdrawal symptoms from opiates. However today he reports a willingness to take some clonidine and Seroquel as well as utilized the Vistaril is available when necessary for withdrawal symptoms after we discussed the risks, benefits and alternatives to those interventions for his withdrawal. We discussed a plan to call taylor jeff as well as his reported outpatient provider for Suboxone to determine whether or not they have availability to begin treating him with allow us to treat him here as long as they will agree to be in charge of his outpatient prescription at discharge. He reports struggling with eating and sleeping. PLAN: Start clonidine, Seroquel, and encourage Vistaril for assistance with withdrawal symptoms while we figure out whether he is going to have resources in place to restart the Suboxone in the hospital. 5. Will restart Suboxone if connected with outpatient doctor on Thursday. HD#4: Interval history: Lukasz presents today somewhat frustrated as we are continuing to try to reach out to his outpatient Suboxone providers to see if they will work with him to create an environment where he could get Suboxone now and they would manage the prescription once he was discharged. We have not heard back from those individuals yet. Otherwise he agreed to take the withdrawal medications and he reports they are helping somewhat. He is sleeping more. He reports he is eating okay. HD#5: Interval history: The patient's having a rather difficult withdrawal. This is partly because he is refusing symptomatic meds as needed. He has had 3- 1/2 years of clean and sober life in the past and knows that he can do it if he can just get through detox he pleads with me to have to prescribe Suboxone, for which I have not been trained and do not have JOHN permission. I called the pharmacy and speak to Gonzalo. We work out protocol of descending dosing of [place]. I encouraged the patient to use the symptomatic treatments involved in the COWS. He said he did not know what those medicines were and I suggested that he have a nurse educating him on what was available to him. He decided not to sign out AMA. HD#6: Interval history: The patient's having a rather difficult withdrawal. This is partly because he is refusing symptomatic meds as needed. He has had 3- 1/2 years of clean and sober life in the past and knows that he can do it if he can just get through detox he pleads with me to have to prescribe Suboxone, for which I have not been trained and do not have JOHN permission. I called the pharmacy and speak to Gonzalo. We work out protocol of descending dosing of Bluemont. I encouraged the patient to use the symptomatic treatments involved in the COWS. He said he did not know what those medicines were and I suggested that he have a nurse educating him on what was available to him. He decided not to sign out AMA. PLAN: pt was started on Percocet with the idea that he would be weaned slowly over t errol. HD#7: Interval history: Patient requesting restart of previously effective medication regmien. He describes events since ou rlast encounter in February 2019. they are c/w those known about him. the major barrier to him remaining clean and sober does seem to be one of access to treatment on an outpatient basis. PLAN: Will restart Suboxone 8/2 twice a day. We'll facilitate transfer to outpatient treatment program when available. Will continue fluoxetine 40 mg daily and gabapentin 300 mg 3 times a day. Involuntary Hold Information 96 Hour Hold: 96 Hour Involuntary Admission: No Mental Status Exam MSE Comments: Discharge Mental Status Exam: Appearance: hygiene is good; no gross neurological deficits., gait is unremarkable; AIMS=0 Speech: Speech is of normal rate and rhythm and easily understood. Thought processes: Thought processes are abstract. Judgment is adequate for safety. Associations: intact Psychotic processes: There is no indication of guarding or paranoia. There is no attention to the internal stimuli. Auditory and visual hallucinations are denied. Judgment: Insight is fair. Problem solving skills are adequate for safety. Orientation: The patient is oriented to person, place time and situation. Memory: no deficits noted in immediate, intermediate, or remote spheres. Attention: The patient is alert and interpersonally engaged. Language: Verbalizations are coherent. Fund of knowledge: Fund of knowledge is adequate. Affect/Mood: Affect is consistent with a euthymic mood. denied suicidal ideation Affective range is appropriate. Psychosis: perception unimpaired except through cognitive distortion; reality testing intact. Discharge Data Vitals: Last Vital Signs Temp 98.3 F 05/26/19 20:19 Pulse 76 05/26/19 20:19 Resp 18 05/26/19 20:19 BP 116/72 05/26/19 20:19 Pulse Ox 97 05/26/19 20:19 Discharge Plan Discharge Patient Disposition: Home, Self-Care Condition: Stable Prescriptions: Continued Prozac 40 mg Capsule 40 mg PO DAILY Qty: 30 RF: 3 gabapentin 300 mg Capsule 300 mg PO TID Qty: 90 RF: 3 Changed Suboxone 8-2 mg Film 1 film SUBLINGUAL BID Qty: 30 RF: 0 Discharge Orders: Discharge Order (Routine); Ordered 05/27/19 Ordered By: Edgar Aikns Discharge Diet: Usual diet Discharge Activity: Increase activity as tolerated Patient Instructions: Fluoxetine (By mouth), Gabapentin (By mouth) Activity Restrictions/Additional Instructions: Resource for substance abuse treatment [facility] [id number] [place] [address] Hours: Thursday-, 8 a.m. to 8 p.m. Thursday, 8 a.m. to 5 p.m. be there at 7:30 a.m. is the recommendation. Services offered at this location: Adult [facility] and addiction therapy services. If needed, you can seek housing at [facility]. There is also a druze program you might want to consider. Ask staff about it! [facility] [address] [place] [address] P: Follow-up resource for outpatient mental health services: [facility] [address] [place] [address] Get Directions [phone] Hours: Thursday-, 8 a.m. to 8 p.m. Thursday, 8 a.m. to 5 p.m. [facility]: 7:30 a.m. to 3:30 p.m. Services offered at this location: [facility] on [facility] houses psychiatry and therapy offices, as well as our new [facility] and our expanded [facility]. [facility] is also located in [facility]. Discharge Date/Time: 05/27/19 05:41 Discharge Attestations NPU Time Spent in Discharge Care*: greater than 30 min Coding Level of Care Code Acute Childcare Center Administrator for Luisa Michael Diagnoses Opioid withdrawal F11.23
== END 2019-05-27 05:41 | disposition home or self-care (01) | DRG 897 ==
LOC: ER 05-21 01:15 → NP 05-21 01:51
PROVIDERS: Admitting Provider Psychiatry & Neurology Psychiatry; Emergency Provider Physician Assistant; Visit Provider Psychiatry & Neurology Psychiatry
DX: F11.23 Opioid dependence with withdrawal (principal); R45.851 Suicidal ideations; F41.8 Other specified anxiety disorders; F17.210 Nicotine dependence, cigarettes, uncomplicated
CPT/HCPCS: 12345; 80053; 80307; 85025; 93005; 99281; J0573

== ENCOUNTER 2019-08-17 09:44 | Inpatient (IN) | payer SELFPAY ==
[2019-08-17] VITALS (8 sets, daily range): BP systolic 113–137; BP diastolic 71–85; PULSE 80–98; RESP 16–18; TEMP 36.9–37.3; O2SAT 96–98; BMI 23.0
[2019-08-17] MEDS: LORazepam 1 mg Tablet PO (10:31)
[2019-08-17 10:36] LABS: Amphetamines Screen Urine Positive (Negative); Barbiturates Screen Urine Negative (Negative); Benzodiazepines Screen Urine Positive (Negative); Cocaine Screen Urine Negative (Negative); Opiate Screen Urine Negative (Negative); PCP Screen Urine Negative (Negative); THC Screen Urine Negative (Negative)
--- NOTE | 2019-08-17 11:41 | ED_ITS ---
HPI - Psych General: Chief Complaint: Psychiatric Symptoms Stated Complaint: WANTS NPU Time Seen by Provider: 08/17/19 09:50 History of Present Illness: HPI Narrative: 33-year-old male comes in with his he is complaining of suicidal thoughts he is considering overdosing. He had previously been on Suboxone he has been out for about 4 to 6 weeks. He has been intermittently buying it on the street about once every 3 days usually takes about a half a pill at a time. He is wanting to be admitted for his suicidal thoughts, with the plan of overdosing. He does use street drugs he states he last used meth 3 days ago and his last Suboxone was evidently yesterday. He denies doing anything else to harm himself recently. Denies any other recent illness or exposure to anyone known to be COVID positive. MD complaint: suicidal ideation and feels depressed Onset (ago): day(s) Duration: constant and getting worse History of same: Yes Context: recent drug abuse, significant life stressor and other (Ran out of meds recently) Treatments prior to arrival: other (Self-medication with street drugs) If self harm: admits thoughts of self harm and has plan Review of Systems Const: Denies: fever, chills, body aches, change in appetite, fatigue or malaise ENMT: Denies: throat pain, ear pain, nasal discharge or nasal congestion Card: Denies: chest pain, edema, shortness of breath on exertion or shortness of breath when lying down Resp: Denies: shortness of breath, productive cough or non-productive cough GI: Denies: abdominal pain, nausea, vomiting, vomiting blood, coffee grounds in vomit, diarrhea, constipation, bloating, blood in stool or black tarry stool : Denies: flank pain, painful urination, urinary frequency or urinary urgency Skin/Breast: Denies: rash or itching PFSH ED PFSH: Social History Smoking and tobacco status: current every day smoker Physical Exam Const: COMMON NORMALS: no apparent distress GENERAL APPEARANCE: cooperative and comfortable ORIENTATION/CONSCIOUSNESS: Yes awake, Yes oriented to person, Yes oriented to place and Yes oriented to time HENMT: COMMON NORMALS: normocephalic, head/scalp atraumatic, hearing grossly normal bilaterally, external ears normal, EAC's normal, TM's normal bilaterally, nasal mucous membranes and turbinates normal, moist oral mucous membranes and oropharynx normal HEAD & SCALP: normocephalic and atraumatic NOSE: nasal mucous membranes and turbinates normal EXTERNAL EAR: Yes external ears normal EXTERNAL AUDITORY CANAL: EAC's normal TYMPANIC MEMBRANE: TM's normal bilaterally Eye: COMMON NORMALS: PERRL, EOMs intact bilaterally, conjunctivae normal and no scleral icterus CONJUNCTIVA: Yes conjunctivae normal PUPIL: Yes PERRL Neck/C-Spine: COMMON NORMALS: full ROM, no lymphadenopathy, supple and no JVD Lymph: LYMPHATIC: no lymphadenopathy noted and no lymphedema noted Resp: COMMON NORMALS: normal respiratory effort, no retractions, no use of accessory muscles and clear to auscultation bilaterally AUSCULTATION: clear to auscultation bilaterally Cardio: COMMON NORMALS: no JVD, regular rate, regular rhythm and no murmurs RATE: regular rate RHYTHM: regular rhythm GI: COMMON NORMALS: soft to palpation and no hepatosplenomegaly AUSCULTATION: Yes normoactive bowel sounds PALPATION: Yes soft, No tender, No guarding and Yes no hepatosplenomegaly Extremity: COMMON NORMALS: normal to inspection, normal capillary refill, no clubbing, cyanosis or edema, no calf tenderness and no pedal edema Neuro: SENSORIUM/ORIENTATION: Yes oriented to person, Yes oriented to place and Yes oriented to time Skin: COMMON NORMALS: no rashes or lesions noted GENERAL SKIN EXAM: no rashes or lesions noted [facility] - Psych Lab Data: Labs: Lab Results 08/17/19 08/17/19 08/17/19 Range/Units 10:13 11:30 11:30 WBC 10.8 H (4.0-10.0) 10^3/ uL RBC 4.71 (4.1-5.3) 10^6/u L Hgb 14.1 (11.7-16.6) g/dL Hct 43.0 (42.0-52.0) % MCV 91.3 (80-94) fL MCH 29.9 (28.0-34.0) pg MCHC 32.8 (30.0-36.0) g/dL RDW 12.7 (12.1-15.1) % Plt Count 293 (130-400) 10^3/c mm MPV 10.6 H (7.4-10.4) fL Neut % (Auto) 73.2 % Lymph % (Auto) 18.7 % [place] % (Auto) 7.0 % Eos % (Auto) 0.2 % Baso % (Auto) 0.6 % Neut # (Auto) 7.9 H (1.8-7.7) 10^3/u L Lymph # (Auto) 2.0 (0.8-4.8) 10^3/u L [place] # (Auto) 0.8 (0.2-0.9) 10^3/u L Eos # (Auto) 0.0 (0.0-0.8) 10^3/u L Baso # (Auto) 0.1 (0.0-0.1) 10^3/u L Nucleated RBC % (a uto) 0 % Nucleated RBCs # 0.0 /100WBC PT 13.10 (10.5-13.3) SECO NDS INR 0.97 (0.8-1.2) Sodium (136-145) mmol/L Potassium (3.5-5.1) mmol/L Chloride (98-107) mmol/L Carbon Dioxide (22-29) mmol/L Anion Gap (5-19) BUN (6-20) mg/dL Creatinine (0.7-1.2) mg/dL GFR Calculation (90-130) mL/min Glucose (65-115) mg/dL Calculated Osmolal ity (285-295) mOsm/k g Calcium (8.5-10.5) mg/dL Total Bilirubin (0.15-1.2) mg/dL AST (0-40) U/L ALT (0-41) U/L Alkaline Phosphata se (40-130) IU/L Total Protein (6.6-8.7) g/dL Albumin (3.5-5.2) g/dL Globulin (1.3-4.6) g/dL TSH (0.27-4.20) uIU/ mL Salicylates (3-10) mg/dL Urine Opiates Scre en Negative (Negative) ng/mL Acetaminophen (10-30) ug/mL Ur Barbiturates Sc reen Negative (Negative) ng/mL Ur Phencyclidine S crn Negative (Negative) ng/mL Ur Amphetamines Sc reen Positive H (Negative) ng/mL U Benzodiazepines Scrn Positive H (Negative) ng/mL Urine Cocaine Scre en Negative (Negative) ng/mL U Marijuana (THC) Screen Negative (Negative) ng/mL Ethyl Alcohol (0-10) mg/dL 08/17/19 Range/Units 11:30 WBC (4.0-10.0) 10^3/ uL RBC (4.1-5.3) 10^6/u L Hgb (11.7-16.6) g/dL Hct (42.0-52.0) % MCV (80-94) fL MCH (28.0-34.0) pg MCHC (30.0-36.0) g/dL RDW (12.1-15.1) % Plt Count (130-400) 10^3/c mm MPV (7.4-10.4) fL Neut % (Auto) % Lymph % (Auto) % [place] % (Auto) % Eos % (Auto) % Baso % (Auto) % Neut # (Auto) (1.8-7.7) 10^3/u L Lymph # (Auto) (0.8-4.8) 10^3/u L [place] # (Auto) (0.2-0.9) 10^3/u L Eos # (Auto) (0.0-0.8) 10^3/u L Baso # (Auto) (0.0-0.1) 10^3/u L Nucleated RBC % (a uto) % Nucleated RBCs # /100WBC PT (10.5-13.3) SECO NDS INR (0.8-1.2) Sodium 142 (136-145) mmol/L Potassium 3.3 L (3.5-5.1) mmol/L Chloride 101 (98-107) mmol/L Carbon Dioxide 25 (22-29) mmol/L Anion Gap 19.3 H (5-19) BUN 14 (6-20) mg/dL Creatinine 0.7 (0.7-1.2) mg/dL GFR Calculation 128.3 (90-130) mL/min Glucose 168 H (65-115) mg/dL Calculated Osmolal ity 294 (285-295) mOsm/k g Calcium 8.9 (8.5-10.5) mg/dL Total Bilirubin 0.3 (0.15-1.2) mg/dL AST 34 (0-40) U/L ALT 27 (0-41) U/L Alkaline Phosphata se 156 H (40-130) IU/L Total Protein 7.1 (6.6-8.7) g/dL Albumin 4.0 (3.5-5.2) g/dL Globulin 3.1 (1.3-4.6) g/dL TSH 0.46 (0.27-4.20) uIU/ mL Salicylates < 0.3 L (3-10) mg/dL Urine Opiates Scre en (Negative) ng/mL Acetaminophen < 5.0 L (10-30) ug/mL Ur Barbiturates Sc reen (Negative) ng/mL Ur Phencyclidine S crn (Negative) ng/mL Ur Amphetamines Sc reen (Negative) ng/mL U Benzodiazepines Scrn (Negative) ng/mL Urine Cocaine Scre en (Negative) ng/mL U Marijuana (THC) Screen (Negative) ng/mL Ethyl Alcohol 102 H (0-10) mg/dL Discharge Plan Discharge Patient Disposition: Admitted As Inpatient Admit Provider: Saeid Lowry Clinical Impression: Suicidal ideation, Polysubstance abuse, Anxiety, Opiate dependence, Depression Condition: Stable Discharge Orders: Discharge Order (Routine); Ordered 08/18/19 Ordered By: Saeid Lowry Discharge Diet: Regular Discharge Activity: Resume usual activity Interventions: ED Discharge Assessment Last Done: 08/17/19 13:49 ED Charges Last Done: 08/17/19 13:49 Discharge Date/Time: 08/17/19 13:50 Coding Level of Care Code 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
[2019-08-17 11:48] LABS: Basophils # 0.1 10^3/uL (0.0-0.1); Basophils % 0.6 %; Eosinophils % 0.2 %; Hemoglobin 14.1 g/dL (11.7-16.6); Lymphocytes % 18.7 %; Mean Corpuscular HGB Conc 32.8 g/dL (30.0-36.0); Mean Corpuscular Hemoglobin 29.9 pg (28.0-34.0); Mean Corpuscular Volume 91.3 fL (80-94); Mean Platelet Volume 10.6 fL (7.4-10.4); Monocytes # 0.8 10^3/uL (0.2-0.9); Neutrophils # 7.9 10^3/uL (1.8-7.7); Neutrophils % 73.2 %; Nucleated Red Blood Cells % 0 %; Platelet Count 293 10^3/cmm (130-400); Red Blood Count 4.71 10^6/uL (4.1-5.3); Red Cell Distribution Width 12.7 % (12.1-15.1); White Blood Count 10.8 10^3/uL (4.0-10.0)
[2019-08-17 12:04] LABS: INR 0.97 (0.8-1.2)
[2019-08-17 12:24] LABS: Alanine Aminotransferase 27 U/L (0-41); Alcohol Level 102 mg/dL (0-10); Alkaline Phosphatase 156 IU/L (40-130); Anion Gap 19.3 (5-19); Aspartate Amino Transferase 34 U/L (0-40); Blood Urea Nitrogen 14 mg/dL (6-20); Calcium 8.9 mg/dL (8.5-10.5); Carbon Dioxide 25 mmol/L (22-29); Chloride 101 mmol/L (98-107); Globulin 3.1 g/dL (1.3-4.6); Glomerular Filtration Rate 128.3 mL/min (90-130); Glucose 168 mg/dL (65-115); Osmolality Calculated 294 mOsm/kg (285-295); Potassium 3.3 mmol/L (3.5-5.1); Sodium 142 mmol/L (136-145); Thyroid Stimulating Hormone 0.46 uIU/mL (0.27-4.20); Total Bilirubin 0.3 mg/dL (0.15-1.2); Total Protein 7.1 g/dL (6.6-8.7)
[2019-08-17 12:26] LABS: Acetaminophen < 5.0 ug/mL (10-30); Salicylate < 0.3 mg/dL (3-10)
[2019-08-18 06:00] VITALS: BP 132/79; PULSE 82; RESP 20; TEMP 37; O2SAT 98
[2019-08-18] MEDS: hyDROXYzine 25 mg Capsule 50 MG PO (07:50)
--- NOTE | 2019-08-18 07:51 | PC.NURSE ---
Addendum entered by Pau Giordano LPN 08/18/19 10:03: prn med effective no further c/o anxiety. pt asleep in bed in room currently Original Note: PRN VISTARIL 50 MG GIVEN PO PER PT C/O STATED ANXIETY WILL CONT TO MONITOR
--- NOTE | 2019-08-18 12:51 | P.HP_ITS ---
Providers/Chief Complaint Admitting Physician: Saeid Lowry MD Chief Complaint: SI HPI NPU History of Present Illness Lukasz Head is a 33 year old male Lukasz presented to the emergency room endorsing suicidal thoughts and active addiction, along with depression, and was admitted to the neuro-psychiatric unit for definitive treatment of these issues. At the time of his evaluation, he expressed that he wanted to leave and was not interested in being evaluated anymore. This was likely in part due to the fact that we would not prescribe Suboxone which was something he knows is our policy and has been the policy, and so there is a likelihood that this represents malingering and he just wanted to have a place to stay last night. His hospitalizations have frequently ended in one day stays or against medical advice discharges as he has something that he appears to be wanting or needing and if that is not met, then his request is to be discharged. He is generally hospitalized on a voluntary basis and not put on 96-hour holds, and so tends not to be grounds to keep him and today is the same situation. He has no interest in having an ongoing conversation about the situation, he just wants to leave. Included below is an excerpt of his last evaluation with this feature writer back in May of this year with more robust information about this patient. Per 05/21/2019 [facility] IP eval: History of Present Illness Lukasz Head is a 33 year old male who presents after presenting to the emergency room with reports of suicidal thoughts and being unsure what he is going to do in his situation. This is his seventh inpatient hospitalization here at [facility] since 12/22/2017. His most recent ones have been very quick and often ended an AMA as he is trying to get back on Suboxone, has no resources and has struggled with the policy we have only prescribing Suboxone to people who have and active outpatient prescription or an outpatient physician who will identify themselves as the person that will prescribe doses after discharge from the hospital. He reports that since he got discharged right before Thanksgiving that he has been in survival mode. He reports he initially was using and buying Suboxone from off the street but the cost became prohibitive and so he went back to the other opiates/heroin. He reports that right now depressed, off his medication, struggling from anxiety and not really knowing what he can do. He reports that he contacted Dr. Hightower in [place] who reported a willingness to be his prescriber after discharge. We discussed a plan to contact him or her first thing Thursday morning. We agreed to restart his previous medication. We did have a discussion about the growing concern about the co-administration of Neurontin especially in high doses with opiates from a standpoint of concerns of lethality. We reviewed information from his last hospitalization some included below and he denies any significant changes in his psychosocial circumstances. Psychiatric history: He has 10+ hospitalizations with 7 here at [facility]. He denies having that many different medication trials however. Substance abuse history: He reports smoking half pack cigarettes a day, that he doesn't drink alcohol often, that he has marijuana every once in a while, it is not use cocaine, but he has methamphetamine sometimes, opiates are a daily challenge and he denies benzodiazepines with any regularity. He reports he has been to 4-5 rehabs in he's never had a DUI. Family history: He's not sure about his family's mental health issues. He reports addiction issues on both sides of family. He reports that he does have a first cousin who committed suicide on his mom's side. Developmental history: He denies any issues with his mother's or delivery of him, he learned to walk and talk to him at his development milestones on time, he denies speech therapy, learning support, emotional support or special education classes. Psychosocial history: He reports his mother and father were together when he was born with a fairly young in his life. He is the only product of their union. He has a half-brother through his mom and 2 half-sisters through his dad. He reports his childhood was also when he denies any emotional, physical or sexual abuse. He graduated from high school. Yet associates degree. 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 He endorses being heterosexual with his longest relationship between 3-1/2 years. He's been one time which was January 2019 and has 1 stepdaughter from that union that is 3 years old but he denies any biological children. Never in the and he denies any muslim belief system. 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 He currently lives in a trailer with his and stepdaughter. Legal history: He has been in [facility] 2 times the longest time being 5-1/2 years for forgery. Per his March 01 hospitalization with this feature writer: History of Present Illness Date of Service: Mar 01, 2019 Chief Complaint: I need to get back on my medications. HPI: Lukasz presented to the inpatient unit after he was seen in the emergency room endorsing suicidal thoughts and a need to get his medication or he did not know what he would do with himself. He presented to the unit and was very driven to get Suboxone prescribed. We explained to him the policy that we only prescribe Suboxone and most other medications upon request when those medications are in fact currently being prescribed. In other words, the person has an active script. Additionally, with Suboxone if the person has a provider and they do not have an active script, but that provider is prepared to be the person providing the prescription at the time of discharge, we are also open to working with that outpatient provider. He was unable after many hours were spent by nursing and this feature writer to find or connect with his last prescriber, so we were unable to find set prescriber. We had made arrangements for treatment and were looking forward to assisting him moving forward, however later in the evening he determined that if he was not going to get the Suboxone he wanted to leave against medical advice. He was absent in lethality during his interview. He denied any interest in hurting himself or anyone else, only wanted to get back o n track with his medication and he felt the Suboxone was the only chance that he had. He is known to the NPU from previous hospitalizations. We reviewed that information during his evaluation, and he denied any significant changes at this time. Per ED eval: HISTORY OF PRESENT ILLNESS Chief Complaint: SEIZURE. This occurred today. The patient has recovered. Seizure was not witnessed. Had a single isolated seizure. Not obtunded post-ictally. Did not recently change anticonvulsant medication. Patient states that he's not certain whether he had a seizure or not but believes he may have. He's had seizures before although not consistently when he would come off of alcohol. Patient states he's been having a hard time with depression and anxiety as he's cycle through addiction to opiates and alcohol. He adamantly denies any current homicidal or suicidal ideation. Similar symptoms previously. None. Recent medical care: The patient was seen recently at this facility (02/19/19 possible seizures). REVIEW OF SYSTEMS No fever, chest pain, palpitations, cough or difficulty breathing. No eye irritation, sore throat, abdominal pain, nausea or diarrhea. No black stools, difficulty with urination, skin rash, enlarged lymph nodes or vomiting. No bloody stools or joint pain. All other systems reviewed and are negative. PAST HISTORY See nurses notes. Hypertension. Seizures. Hepatitis. Mental illness. Depression. ( Psychosis). Surgeries: Fracture repair. Left upper extremity fracture repair. SOCIAL HISTORY Smoker- current status unknown (tobacco). Never smoker. Heavy alcohol use; consumes liquor by the bottle daily. History of drug use hx: heroin. ADDITIONAL NOTES The nursing notes have been reviewed. PHYSICAL EXAM Vital Signs: 02/28/2019 16:55 BP: 143/114. HR: 132. RR: 18. O2 saturation: 99%. Temp: 98.8 F. Pain level now: 0/10. Appearance: Alert. No acute distress. Eyes: Pupils equal, round and reactive to light. No nystagmus. Extraocular movements normal. ENT: Normal ENT inspection. TM's normal. Moist mucous membranes. Pharynx normal. Neck: Normal inspection. Neck supple. CVS: Normal heart rate and rhythm. Heart sounds normal. Pulses normal. Respiratory: No respiratory distress. Breath sounds normal. Abdomen: Soft and nontender. No organomegaly. Back: Normal inspection. Skin: Skin warm. Normal skin color. No rash. Extremities: Extremities exhibit normal ROM. No lower extremity edema. Neuro: Alert. Oriented X 3. Mood/affect normal. Speech normal. Cranial nerves normal (as tested). No cerebellar findings. No motor deficit. No sensory deficit. LABS, X-RAYS, AND EKG EKG: EKG time: (0114). Normal sinus rhythm. Rate: 108. Normal P waves. Normal JOSUÉ. Normal QRS complex. Normal axis. Normal ST and T waves, QT and QTc. Interpretation time: 0114. Laboratory Tests: Laboratory tests have been ordered, with results reviewed and considered in the medical decision making process. Urine Drug Screen: (MARBELLA: 03/01/2019 00:07)( MsgRcvd 03/01/2019 00:09) In Progress Comments: Room Number: 4 History of Present Illness Date of Service: Jan 08, 2019 Chief Complaint: I've been drinking a lot. I will get back on my buprenorphine. HPI: Lukasz Head is a 33-year-old male with a well-known history of polysubstance abuse who presented to the emergency room as described below. He states today that it is his intent to detox from the alcohol in preparation for his return to the the [facility] Suboxone program. He has an appointment scheduled in 5 days. He reports that he has been free of narcotic use. He denies suicidal or homicidal ideation. He denies presence of auditory or visual hallucinations. He is a voluntary patient. We agreed on the plan below. Emergency room notes:Chief Complaint: GOT THE SHAKES . Wants to stop drinking. Wants to enter detox program. Symptoms started 3 days ago. The patient has had nausea, vomiting and seizure activity. The symptoms are described as severe. No injuries noted. Lukasz is a nice 33-year-old male who comes in requesting help with detox from alcohol. Patient states he has a history of opiate and methamphetamine abuse but the opiate problem is the biggest deal for him. He states that he uses alcohol to self medicate for pain. He states that he has an alcoholic and cannot stop on his own. He did try again to do so a day and a half ago but had a seizure. He denies any injuries from the seizure. Patient currently says he feels very sick, nervous and not right . Past mental health history Patient was admitted to the same unit in August 2018. Records provided the following information: it was discovered that he had been in the [facility] outpatient program and had been receiving Suboxone but that he was frequently noncompliant and had a pattern of positive urine drug screens. It is not known whether he had been kicked out of the program or what his status was in the program. They did confirm that he did have a an appointment in 4 days in the outpatient service. However it was not clear whether they were willing to restart Suboxone. Verbal report from a member of that program was that they were insisting that he go to inpatient rehabilitation if he was to continue services there. His urine drug screen was positive for amphetamines and and benzodiazepines but negative for barbiturates. Blood alcohol level was below measurable limit. Patient remained for 3 days and then left AGAINST MEDICAL ADVICE. Meds NPU Home Medications Medication Instructions Recorded Confirmed Last Taken Type Suboxone Tab 1 tab PO BID 08/17/19 08/17/19 Unknown History lorazepam 0.5 mg PO Q6H PRN 08/17/19 08/17/19 Unknown History Allergies Allergy/AdvReac Type Severity Reaction Status Date / Time NSAIDS (Non-Steroidal Allergy ALGY-Anaphy Verified 05/20/19 23:10 Anti-Inflamma laxis PFSH NPU PFSH: Social History Smoking and tobacco status: current every day smoker Mental Status Exam MSE Comments: This is a well-nourished, well-developed, white male, with adequate dress, grooming, and eye contact. No abnormal movements except for mild psychomotor retardation. Cooperative with exam in no acute distress. Speech was slightly decreased rate and volume. Mood described as fine; affect slightly irritable. Thought process, organized. Thought content: patient denied any suicidal or homicidal ideation, there were no delusions reported or noted, patient denied any auditory or visual hallucinations. Attention, concentration, and memory appear intact but were not formally tested. He is alert and oriented times three. Insight and judgment are limited. Impulse control limited. Vitals/I&O/Wt Last Vital Signs Temp 99.0 F 08/18/19 14:00 Pulse 83 08/18/19 14:00 Resp 18 08/18/19 14:00 BP 116/80 08/18/19 14:00 Pulse Ox 98 08/18/19 14:00 Weight last 48 hrs Weight 74.843 kg Data NPU : 08/17/19 11:30 08/17/19 11:30 A&P Assessment and plan (1) Suicidal ideation: Status: Acute (2) Opioid withdrawal: Status: Acute (3) Depression: Status: Acute (4) Opiate dependence: Status: Acute (5) Anxiety: Status: Acute (6) Polysubstance abuse: Status: Acute Additional A&P Information This is a 33 year old, white male, with depression, anxiety and active ad diction, who presents saying he is no longer interested in exploring resources and being evaluated and treated for his mental health and addiction issues, requesting to be discharged against medical advice. Continue current medication. The patient is not on a 96-hour hold and does not have a criteria to institute a hold. For that reason, he will be allowed to leave against medical advice. He was advised to pursue outpatient mental health services and consider addiction services at the highest level of treatment, to which he is willing to commit. Involuntary Hold Information 96 Hour Hold: 96 Hour Involuntary Admission: No Attestations NPU Medical Necessity Statement*: Inpatient hospitalization would be medically prudent and would be justified at this time. However, with patient not on a 96-hour hold and absent grounds for a 96-hour hold, he has the right to choose to engage and not engage in treatment, and so we will respect his desire to disengage from treatment and discharge him against medical advice. Coding Level of Care Code Acute Radiophone Operator for [facility] Fwd Diagnoses Suicidal ideation R45.851 Opioid withdrawal F11.23 Depression F32.9 Opiate dependence F11.20 Anxiety F41.9 Polysubstance abuse F19.10
[2019-08-18] MEDS: nicotine 2 mg Gum BUCCAL (13:24)
[2019-08-18] MEDS: haloperidol 5 mg Tablet PO (13:39)
[2019-08-18] MEDS: benztropine 1 mg Tablet PO (13:40)
--- NOTE | 2019-08-18 13:40 | PC.NURSE ---
Addendum entered by Pau Giordano LPN 08/18/19 15:59: prn meds effective no further c/o agitation. pt currently asleep Original Note: PRN HALDOL & COGENTIN HALDOL 5 MG GIVEN PO PER PT C/O AGITATION. COGENTIN 1 MG GIVEN PO TO HELP WITH POSSIBLE SIDE EFFECTS FROM HALDOL. PT UPSET THAT HE ISN'T RECEIVING SUBOXONE. ASKING TO LEAVE AMA. ENCOURAGED BY STAFF TO SPEAK TO PHYSICIAN ABOUT POSSIBLE DISCHARGE. PT PACING HALLWAY, CURSING TO HIMSELF. RAPID PRESSURED SPEECH NOTED. TOOK MEDS WITHOUT INCIDENT. WILL CONT TO MONITOR.
[2019-08-18 14:00] VITALS: BP 116/80; PULSE 83; RESP 18; TEMP 37.2; O2SAT 98
--- NOTE | 2019-08-18 17:53 | PM.NDC ---
Diagnoses at Discharge Discharge Diagnosis (1) Suicidal ideation: Status: Acute (2) Opioid withdrawal: Status: Acute (3) Depression: Status: Acute (4) Opiate dependence: Status: Acute (5) Anxiety: Status: Acute (6) Polysubstance abuse: Status: Acute Reason for Visit Reason for Visit: Reason For Visit: SI Brief History: History of Present Illness Lukasz Head is a 33 year old male Lukasz presented to the emergency room endorsing suicidal thoughts and active addiction, along with depression, and was admitted to the neuro-psychiatric unit for definitive treatment of these issues. At the time of his evaluation, he expressed that he wanted to leave and was not interested in being evaluated anymore. This was likely in part due to the fact that we would not prescribe Suboxone which was something he knows is our policy and has been the policy, and so there is a likelihood that this represents malingering and he just wanted to have a place to stay last night. His hospitalizations have frequently ended in one day stays or against medical advice discharges as he has something that he appears to be wanting or needing and if that is not met, then his request is to be discharged. He is generally hospitalized on a voluntary basis and not put on 96-hour holds, and so tends not to be grounds to keep him and today is the same situation. He has no interest in having an ongoing conversation about the situation, he just wants to leave. Included below is an excerpt of his last evaluation with this contract technical writer back in May of this year with more robust information about this patient. Per 05/21/2019 [facility] – [place] eval: History of Present Illness Lukasz Head is a 33 year old male who presents after presenting to the emergency room with reports of suicidal thoughts and being unsure what he is going to do in his situation. This is his seventh inpatient hospitalization here at [facility] [place] since 12/22/2017. His most recent ones have been very quick and often ended an AMA as he is trying to get back on Suboxone, has no resources and has struggled with the policy we have only prescribing Suboxone to people who have and active outpatient prescription or an outpatient physician who will identify themselves as the person that will prescribe doses after discharge from the hospital. He reports that since he got discharged right before Thanksgiving that he has been in survival mode. He reports he initially was using and buying Suboxone from off the street but the cost became prohibitive and so he went back to the other opiates/heroin. He reports that right now depressed, off his medication, struggling from anxiety and not really knowing what he can do. He reports that he contacted Dr. Hightower in [place] who reported a willingness to be his prescriber after discharge. We discussed a plan to contact him or her first thing Thursday morning. We agreed to restart his previous medication. We did have a discussion about the growing concern about the co-administration of Neurontin especially in high doses with opiates from a standpoint of concerns of lethality. We reviewed information from his last hospitalization some included below and he denies any significant changes in his psychosocial circumstances. Psychiatric history: He has 10+ hospitalizations with 7 here at [facility] [place]. He denies having that many different medication trials however. Substance abuse history: He reports smoking half pack cigarettes a day, that he doesn't drink alcohol often, that he has marijuana every once in a while, it is not use cocaine, but he has methamphetamine sometimes, opiates are a daily challenge and he denies benzodiazepines with any regularity. He reports he has been to 4-5 rehabs in he's never had a DUI. Family history: He's not sure about his family's mental health issues. He reports addiction issues on both sides of family. He reports that he does have a first cousin who committed suicide on his mom's side. Developmental history: He denies any issues with his mother's or delivery of him, he learned to walk and talk to him at his development milestones on time, he denies speech therapy, learning support, emotional support or special education classes. Psychosocial history: He reports his mother and father were together when he was born with a fairly young in his life. He is the only product of their union. He has a half-brother through his mom and 2 half-sisters through his dad. He reports his childhood was also when he denies any emotional, physical or sexual abuse. He graduated from high school. Yet associates degree. 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 He endorses being heterosexual with his longest relationship between 3-1/2 years. He's been one time which was January 2019 and has 1 stepdaughter from that union that is 3 years old but he denies any biological children. Never in the and he denies any gnosticist belief system. 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 He currently lives in a trailer with his and stepdaughter. Legal history: He has been in [facility] 2 times the longest time being 5-1/2 years for forgery. Per his March 01 hospitalization with this contract technical writer: History of Present Illness Date of Service: Mar 01, 2019 Chief Complaint: I need to get back on my medications. HPI: Lukasz presented to the inpatient unit after he was seen in the emergency room endorsing suicidal thoughts and a need to get his medication or he did not know what he would do with himself. He presented to the unit and was very driven to get Suboxone prescribed. We explained to him the policy that we only prescribe Suboxone and most other medications upon request when those medications are in fact currently being prescribed. In other words, the person has an active script. Additionally, with Suboxone if the person has a provider and they do not have an active script, but that provider is prepared to be the person providing the prescription at the time of discharge, we are also open to working with that outpatient provider. He was unable after many hours were spent by nursing and this contract technical writer to find or connect with his last prescriber, so we were unable to find set prescriber. We had made arrangements for treatment and were looking forward to assisting him moving forward, however later in the evening he determined that if he was not going to get the Suboxone he wanted to leave against medical advice. He was absent in lethality during his interview. He denied any interest in hurting himself or anyone else, only wanted to get back on track with his medication and he felt the Suboxone was the only chance that he had. He is known to the NPU from previous hospitalizations. We reviewed that information during his evaluation, and he denied any significant changes at this time. Per ED eval: HISTORY OF PRESENT ILLNESS Chief Complaint: SEIZURE. This occurred today. The patient has recovered. Seizure was not witnessed. Had a single isolated seizure. Not obtunded post-ictally. Did not recently change anticonvulsant medication. Patient states that he's not certain whether he had a seizure or not but believes he may have. He's had seizures before although not consistently when he would come off of alcohol. Patient states he's been having a hard time with depression and anxiety as he's cycle through addiction to opiates and alcohol. He adamantly denies any current homicidal or suicidal ideation. Similar symptoms previously. None. Recent medical care: The patient was seen recently at this facility (02/19/19 possible seizures). REVIEW OF SYSTEMS No fever, chest pain, palpitations, cough or difficulty breathing. No eye irritation, sore throat, abdominal pain, nausea or diarrhea. No black stools, difficulty with urination, skin rash, enlarged lymph nodes or vomiting. No bloody stools or joint pain. All other systems reviewed and are negative. PAST HISTORY See nurses notes. Hypertension. Seizures. Hepatitis. Mental illness. Depression. ( Psychosis). Surgeries: Fracture repair. Left upper extremity fracture repair. SOCIAL HISTORY Smoker- current status unknown (tobacco). Never smoker. Heavy alcohol use; consumes liquor by the bottle daily. History of drug use hx: heroin. ADDITIONAL NOTES The nursing notes have been reviewed. PHYSICAL EXAM Vital Signs: 02/28/2019 16:55 BP: 143/114. HR: 132. RR: 18. O2 saturation: 99%. Temp: 98.8 F. Pain level now: 0/10. Appearance: Alert. No acute distress. Eyes: Pupils equal, round and reactive to light. No nystagmus. Extraocular movements normal. ENT: Normal ENT inspection. TM's normal. Moist mucous membranes. Pharynx normal. Neck: Normal inspection. Neck supple. CVS: Normal heart rate and rhythm. Heart sounds normal. Pulses normal. Respiratory: No respiratory distress. Breath sounds normal. Abdomen: Soft and nontender. No organomegaly. Back: Normal inspection. Skin: Skin warm. Normal skin color. No rash. Extremities: Extremities exhibit normal ROM. No lower extremity edema. Neuro: Alert. Oriented X 3. Mood/affect normal. Speech normal. Cranial nerves normal (as tested). No cerebellar findings. No motor deficit. No sensory deficit. LABS, X-RAYS, AND EKG EKG: EKG time: (0114). Normal sinus rhythm. Rate: 108. Normal P waves. Normal JOSUÉ. Normal QRS complex. Normal axis. Normal ST and T waves, QT and QTc. Interpretation time: 0114. Laboratory Tests: Laboratory tests have been ordered, with results reviewed and considered in the medical decision making process. Urine Drug Screen: (MARBELLA: 03/01/2019 00:07)( MsgRcvd 03/01/2019 00:09) In Progress Comments: Room Number: 4 History of Present Illness Date of Service: Jan 08, 2019 Chief Complaint: I've been drinking a lot. I will get back on my buprenorphine. HPI: Lukasz Head is a 33-year-old male with a well-known history of polysubstance abuse who presented to the emergency room as described below. He states today that it is his intent to detox from the alcohol in preparation for his return to the [facility] Suboxone program. He has an appointment scheduled in 5 days. He reports that he has been free of narcotic use. He denies suicidal or homicidal ideation. He denies presence of auditory or visual hallucinations. He is a voluntary patient. We agreed on the plan below. Emergency room notes:Chief Complaint: GOT THE SHAKES . Wants to stop drinking. Wants to enter detox program. Symptoms started 3 days ago. The patient has had nausea, vomiting and seizure activity. The symptoms are described as severe. No injuries noted. Lukasz is a nice 33-year-old male who comes in requesting help with detox from alcohol. Patient states he has a history of opiate and methamphetamine abuse but the opiate problem is the biggest deal for him. He states that he uses alcohol to self medicate for pain. He states that he has an alcoholic and cannot stop on his own. He did try again to do so a day and a half ago but had a seizure. He denies any injuries from the seizure. Patient currently says he feels very sick, nervous and not right . Past mental health history Patient was admitted to the same unit in August 2018. Records provided the following information: it was discovered that he had been in [facility] outpatient program and had been receiving Suboxone but that he was frequently noncompliant and had a pattern of positive urine drug screens. It is not known whether he had been kicked out of the program or what his status was in the program. They did confirm that he did have a an appointment in 4 days in the outpatient service. However it was not clear whether they were willing to restart Suboxone. Verbal report from a member of that program was that they were insisting that he go to inpatient rehabilitation if he was to continue services there. His urine drug screen was positive for amphetamines and and benzodiazepines but negative for barbiturates. Blood alcohol level was below measurable limit. Patient remained for 3 days and then left AGAINST MEDICAL ADVICE. Hospital Course Hospital Course Lukasz presented to the emergency room endorsing withdrawal, active addiction, depression, anxiety, and suicidality. He was admitted to the neuro-psychiatric unit for definitive treatment of those issues. On the unit, he quickly decided that he was not interested in continuing treatment, maybe in part due to the policy of not giving Suboxone to people without active prescriptions, but otherwise he was not on a 96-hour hold, was not interested in engaging in treatment, and was allowed to leave. During the hospitalization, he had routine laboratory studies which were within normal limits except for a few outliers. Additionally, he had a general medical evaluation which was also within normal limits in general and revealed no new acute processes outside of his intoxication and withdrawal. Discharge Summary At the time of discharge, he denied all lethality and had no signs of psychosis and his mood and anxiety were stable. He endorsed a plan to take up his treatment elsewhere and possibly find an inpatient drug and alcohol treatment program. He was evaluated and deemed to be absent credible lethality, and was not on a 96-hour hold, did not meet any criteria to institute a 96-hour hold, so he was allowed to exercise his right and discharge against medical advice. Involuntary Hold Information 96 Hour Hold: 96 Hour Involuntary Admission: No Mental Status Exam MSE Comments: This is a well-nourished, well-developed, white male, with adequate dress, grooming, and eye contact. No abnormal movements except for mild psychomotor retardation. Cooperative with exam in no acute distress. Speech was slightly decreased rate and volume. Mood described as fine; affect slightly irritable. Thought process, organized. Thought content: patient denied any suicidal or homicidal ideation, there were no delusions reported or noted, patient denied any auditory or visual hallucinations. Attention, concentration, and memory appear intact but were not formally tested. He is alert and oriented times three. Insight and judgment are limited. Impulse control limited. Discharge Data Vitals: Last Vital Signs Temp 99.0 F 08/18/19 14:00 Pulse 83 08/18/19 14:00 Resp 18 08/18/19 14:00 BP 116/80 08/18/19 14:00 Pulse Ox 98 08/18/19 14:00 Discharge Plan Discharge Patient Disposition: Home, Self-Care Condition: Stable Prescriptions: Continued lorazepam 0.5 mg tablet 0.5 mg PO Q6H PRN (Reason: sensation of a seizure) RF: 0 Suboxone Tab 1 tab PO BID RF: 0 Discharge Orders: Discharge Order (Routine); Ordered 08/18/19 Ordered By: Saeid Lowry Referrals: [facility] – [place] [facility] [Outside] (walk-in hours 7:30 a.m. -2:30 p.m. Thursday through Thursday. ) [facility] [Outside] (call about residential or outpatient substance abuse treatment, if needed. ) Discharge Diet: Regular Discharge Activity: Resume usual activity Patient Instructions: Depression Discharge Date/Time: 08/18/19 18:18 Discharge Attestations [facility] Time Spent in Discharge Care*: less than 30 min Specific Discharge Activities: Specific discharge activities: educating patient, discussing with counseling case manager/social workers/dc planners, documenting/other paperwork and evaluating patient/reviewing data Coding Level of Care Code Acute Cardiac Nurse Specialist for Luisa Fwd Diagnoses Suicidal ideation R45.851 Opioid withdrawal F11.23 Depression F32.9 Opiate dependence F11.20 Anxiety F41.9 Polysubstance abuse F19.10
[2019-08-18 17:54] VITALS: BP 116/80; PULSE 83; RESP 18; TEMP 37.2; O2SAT 98
== END 2019-08-18 18:18 | disposition home or self-care (01) | DRG 897 ==
LOC: ER 13:14 → NP 13:15
PROVIDERS: Admitting Provider Psychiatry & Neurology Psychiatry; Emergency Provider Family Medicine; Visit Provider Psychiatry & Neurology Psychiatry
DX: F11.23 Opioid dependence with withdrawal (principal); R45.851 Suicidal ideations; F41.8 Other specified anxiety disorders; F19.229 Other psychoactive substance dependence with intoxication, unspecified; F17.210 Nicotine dependence, cigarettes, uncomplicated; I10 Essential (primary) hypertension; G40.909 Epilepsy, unspecified, not intractable, without status epilepticus; K75.9 Inflammatory liver disease, unspecified
CPT/HCPCS: 12345; 80053; 80306; 80307; 84443; 85025; 85610; 99284; A9270

== ENCOUNTER 2020-05-10 22:26 | Inpatient (IN) | payer SELFPAY ==
[2020-05-10 22:28] VITALS: BP 124/71; PULSE 129; RESP 20; TEMP 37.4; O2SAT 99; BMI 25.1
--- NOTE | 2020-05-10 22:32 | ED_ITS ---
HPI - Psych General: Chief Complaint: Psychiatric Symptoms Stated Complaint: si Time Seen by Provider: 05/10/20 22:27 Source: patient and EMS Mode of arrival: EMS Limitations: no limitations History of Present Illness: HPI Narrative: 34-year-old male states that he is a IV opioid user and chronic drinker. He states he has been trying to stop has been having extreme anxiety along with depression. He states he has had some hallucinations and has been having suicidal thoughts. He has no specific plan but states he has been having increasing thoughts and feels like he needs psychiatric help. Denies any worsening improving factors. He has no vomiting. MD complaint: suicidal ideation Associated symptoms: Reports depression Review of Systems Const: Denies: fever(s), chills, body aches or change in appetite Eyes: Denies: blurry vision or eye discomfort ENMT: Denies: throat pain or dental pain Card: Denies: chest pain Resp: Denies: dyspnea GI: Denies: abdominal pain, nausea, vomiting or diarrhea : Denies: dysuria Musc: Denies: neck pain or back pain Skin/Breast: Denies: rash Neuro: Denies: headache(s) Psych: Reports: anxiety and depression Orion/Lymph: Denies: easy bruising All/Imm: Denies: urticaria PFSH ED PFSH: Social History Smoking and tobacco status: current every day smoker Physical Exam Const: COMMON NORMALS: no acute distress, patient oriented x3 and healthy appearing HENMT: COMMON NORMALS: normocephalic and atraumatic HEAD & SCALP: normocephalic and atraumatic Eye: COMMON NORMALS: Equal, round and reactive pupils present and EOMs intact bilaterally PUPIL: Yes Equal, round and reactive pupils present Neck/C-Spine: COMMON NORMALS: full ROM and supple Chest: COMMONS NORMALS: normal inspection of the chest and normal palpation of entire chest wall Resp: COMMON NORMALS: normal respiratory effort, No retractions, No use of accessory muscles and clear to auscultation bilaterally AUSCULTATION: clear to auscultation bilaterally Cardio: COMMON NORMALS: regular rhythm and No murmurs present (Cardio) RATE: tachycardic RHYTHM: regular rhythm GI: COMMON NORMALS: Normal to inspection, nondistended, normoactive bowel sounds present, Soft to palpation, non-tender and no masses PALPATION: Yes Soft to palpation Extremity: COMMON NORMALS: normal to inspection and full ROM Neuro: COMMON NORMALS: patient oriented x3, moves all extremities and no focal motor deficits Psych: COMMON NORMALS: mental status grossly normal, Normal thought process present and cooperative MOOD & AFFECT: Yes anxious THOUGHT PROCESS: Normal thought process present THOUGHT CONTENT: Yes Suicidality present Skin: COMMON NORMALS: no rashes or lesions noted and no wounds GENERAL SKIN EXAM: no rashes or lesions noted MDM - Psych MDM Narrative: Medical decision making narrative: Patient presents for suicidal ideations along with drug abuse. Patient is voluntary any is well- appearing here and is medically cleared. Patient's blood work is all normal. He does have some slight tachycardia but feels much improved after Ativan. He has no signs of any acute alcohol withdrawals. Lab Data: Labs: Lab Results 05/10/20 05/10/20 05/10/20 Range/Units 22:41 22:41 23:30 WBC 8.0 (4.0-10.0) 10^3/ uL RBC 4.87 (4.1-5.3) 10^6/u L Hgb 14.9 (11.7-16.6) g/dL Hct 44.1 (42.0-52.0) % MCV 90.6 (80-94) fL MCH 30.6 (28.0-34.0) pg MCHC 33.8 (30.0-36.0) g/dL RDW 12.5 (12.1-15.1) % Plt Count 259 (130-400) 10^3/c mm MPV 11.3 H (7.4-10.4) fL Neut % (Auto) 51.8 % Lymph % (Auto) 37.3 % [place] % (Auto) 7.0 % Eos % (Auto) 2.8 % Baso % (Auto) 0.8 % Neut # (Auto) 4.14 (1.8-7.7) 10^3/u L Lymph # (Auto) 3.0 (0.8-4.8) 10^3/u L [place] # (Auto) 0.6 (0.2-0.9) 10^3/u L Eos # (Auto) 0.2 (0.0-0.8) 10^3/u L Baso # (Auto) 0.1 (0.0-0.1) 10^3/u L Nucleated RBC % (a uto) 0 % Nucleated RBCs # 0.0 /100WBC Sodium 140 (136-145) mmol/L Potassium 4.4 (3.5-5.1) mmol/L Chloride 104 (98-107) mmol/L Carbon Dioxide 23 (22-29) mmol/L Anion Gap 17.4 (5-19) BUN 20 (6-20) mg/dL Creatinine 0.8 (0.7-1.2) mg/dL GFR Calculation 109.4 (90-130) mL/min Glucose 127 H (65-115) mg/dL Calculated Osmolal ity 294 (285-295) mOsm/k g Calcium 8.7 (8.5-10.5) mg/dL Total Bilirubin 0.2 (0.15-1.2) mg/dL AST 37 (0-40) U/L ALT 38 (0-41) U/L Alkaline Phosphata se 166 H (40-130) IU/L Total Protein 7.5 (6.6-8.7) g/dL Albumin 4.0 (3.5-5.2) g/dL Globulin 3.5 (1.3-4.6) g/dL Salicylates < 0.3 L (3-10) mg/dL Urine Opiates Scre en Negative (Negative) ng/mL Acetaminophen < 5.0 L (10-30) ug/mL Ur Barbiturates Sc reen Negative (Negative) ng/mL Ur Phencyclidine S crn Negative (Negative) ng/mL Ur Amphetamines Sc reen Positive H (Negative) ng/mL U Benzodiazepines Scrn Positive H (Negative) ng/mL Urine Cocaine Scre en Negative (Negative) ng/mL U Marijuana (THC) Screen Positive H (Negative) ng/mL Ethyl Alcohol 79 H (0-10) mg/dL EKG Data^: EKG 1: Attestation: I personally reviewed and interpreted this EKG as follows: EKG interpretation date: 05/10/20 EKG interpretation time: 22:40 Interpretation: sinus tach hr [address] or t wave abnormalities qrs 103 qtc 369 Discharge Plan Discharge Patient Disposition: Admitted As Inpatient Admit Provider: Saeid Lowry Clinical Impression: Suicidal ideation, Polysubstance abuse Condition: Stable Coding Level of Care Code ED Military Technology Manager for Chg Fwd Exam Comprehensive
--- NOTE | 2020-05-10 22:40 | ECG_ITS ---
[facility] Test Date: 2020-05-10 Pat Name: Lukasz Head Department: Room: 155 Gender: Male Test Consultant: : 1985 Requested By: Timmy James Order Number: [id number] Jose Carlos MD: Daisy Jules M.D. Measurements Intervals [place] Rate: 116 P: 56 NM: 168 QRS: 33 QRSD: 103 T: 52 QT: 300 QTc: 418 Interpretive Statements SINUS TACHYCARDIA Compared to ECG 05/21/2019 00:21:59 Sinus rhythm no longer present Myocardial infarct finding no longer present Electronically Signed On 05-11-2020 22:26:23 UNDERGROUND MINE MACHINERY MECHANIC by Daisy Jules M.D. [email or web address]
[2020-05-10] MEDS: LORazepam 2 mg/mL INJ 1 mL IM (22:42)
[2020-05-10 22:47] LABS: Basophils # 0.1 10^3/uL (0.0-0.1); Basophils % 0.8 %; Eosinophils # 0.2 10^3/uL (0.0-0.8); Eosinophils % 2.8 %; Hematocrit 44.1 % (42.0-52.0); Hemoglobin 14.9 g/dL (11.7-16.6); Lymphocytes % 37.3 %; Mean Corpuscular HGB Conc 33.8 g/dL (30.0-36.0); Mean Corpuscular Hemoglobin 30.6 pg (28.0-34.0); Mean Corpuscular Volume 90.6 fL (80-94); Mean Platelet Volume 11.3 fL (7.4-10.4); Monocytes # 0.6 10^3/uL (0.2-0.9); Neutrophils # 4.14 10^3/uL (1.8-7.7); Neutrophils % 51.8 %; Nucleated Red Blood Cells % 0 %; Platelet Count 259 10^3/cmm (130-400); Red Blood Count 4.87 10^6/uL (4.1-5.3); Red Cell Distribution Width 12.5 % (12.1-15.1)
[2020-05-10] MEDS: multivitamin therapeutic Tablet 1 TAB PO (22:51)
[2020-05-10 23:09] LABS: Alanine Aminotransferase 38 U/L (0-41); Alcohol Level 79 mg/dL (0-10); Alkaline Phosphatase 166 IU/L (40-130); Anion Gap 17.4 (5-19); Aspartate Amino Transferase 37 U/L (0-40); Blood Urea Nitrogen 20 mg/dL (6-20); Calcium 8.7 mg/dL (8.5-10.5); Carbon Dioxide 23 mmol/L (22-29); Chloride 104 mmol/L (98-107); Creatinine Clr Calc Pharmacy 140.5423; Globulin 3.5 g/dL (1.3-4.6); Glomerular Filtration Rate 109.4 mL/min (90-130); Glucose 127 mg/dL (65-115); Osmolality Calculated 294 mOsm/kg (285-295); Potassium 4.4 mmol/L (3.5-5.1); Sodium 140 mmol/L (136-145); Total Bilirubin 0.2 mg/dL (0.15-1.2); Total Protein 7.5 g/dL (6.6-8.7)
[2020-05-10 23:22] LABS: Acetaminophen < 5.0 ug/mL (10-30); Salicylate < 0.3 mg/dL (3-10)
[2020-05-10 23:33] VITALS: BP 118/69; PULSE 121; RESP 18; O2SAT 98
[2020-05-10] MEDS: LORazepam 2 mg Tablet PO (23:36)
[2020-05-11] VITALS (7 sets, daily range): BP systolic 115–135; BP diastolic 68–80; PULSE 88–123; RESP 15–20; TEMP 36.1–36.7; O2SAT 96–97
[2020-05-11 00:07] LABS: Amphetamines Screen Urine Positive (Negative); Barbiturates Screen Urine Negative (Negative); Benzodiazepines Screen Urine Positive (Negative); Cocaine Screen Urine Negative (Negative); Opiate Screen Urine Negative (Negative); PCP Screen Urine Negative (Negative); THC Screen Urine Positive (Negative)
--- NOTE | 2020-05-11 00:39 | PC.NURSE ---
PT MED PT stated that he was on suboxone 8-2 mg PO BID, Last filled 07/2019 in [facility] at a [facility]. Per pt.
[2020-05-11] MEDS: hyDROXYzine 25 mg Capsule 50 MG PO (00:51)
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
--- NOTE | 2020-05-11 01:08 | PC.NURSE ---
Skin assessment revealed no wounds or injuries.
--- NOTE | 2020-05-11 02:23 | PC.NURSE ---
Ciwa 10 Improvement of Ciwa. Pt was a 17 on Ciwa prior to admit. Pt is attempting to rest and is currently scored a 10 on Ciwa. pt is not requesting medication at this time.
[2020-05-11] MEDS: thiamine 100 mg Tablet PO (07:53)
[2020-05-11] MEDS: fluoxetine 20 mg Capsule 40 MG PO (07:53)
[2020-05-11] MEDS: folic acid 1 mg Tablet PO (07:53)
[2020-05-11] MEDS: multivitamin therapeutic Tablet 1 TAB PO (07:53)
--- NOTE | 2020-05-11 16:47 | PC.RESP ---
Smoking Cessation information sent to patient.
--- NOTE | 2020-05-11 17:26 | PM.NHP ---
Providers/Chief Complaint Admitting Physician: Saeid Lowry MD Chief Complaint: si HPI NPU History of Present Illness Lukasz Head is a 34 year old male who presented to the emergency department with the following report: Chief Complaint: Psychiatric Symptoms Stated Complaint: si Time Seen by Provider: 05/10/20 22:27 Source: patient and EMS Mode of arrival: EMS Limitations: no limitations History of Present Illness: HPI Narrative: 34-year-old male states that he is a IV opioid user and chronic drinker. He states he has been trying to stop has been having extreme anxiety along with depression. He states he has had some hallucinations and has been having suicidal thoughts. He has no specific plan but states he has been having increasing thoughts and feels like he needs psychiatric help. Denies any worsening improving factors. He has no vomiting. MD complaint: suicidal ideation Associated symptoms: Reports depression. He was admitted to the neuropsychiatric unit for definitive treatment of those issues. Lukasz is in today reporting that things went well for period of time. He reports that at 1 point he was at a Suboxone clinic but that is in a couple of months. He endorses he has been getting Suboxone still and is worried about his withdrawal over the next several days. His UDS was positive for benzodiazepines, THC, amphetamines, alcohol, and he reports the use of the Suboxone which would not have shown up on the screen. We discussed him being on the CIWA protocol as he expressed anxiety about withdraw from alcohol and benzodiazepines. We discussed the complication of having multiple drugs to withdrawal from from a standpoint of giving him supportive medication. We also discussed working with the treatment team to find him some kind of ongoing sober living treatment option and he was open to that idea. We agreed we would review his chart and consider restarting his Prozac in the morning but likely at a lower dose than he had been on. We discussed the risks, benefits and alternatives of multiple medication interventions and he understood and agreed to proceed as is documented in this note. We discussed our policy on Suboxone and that we would work with the social work team to possibly find him a provider which might allow us to assist him prior to discharge but he may have to except that he will only have supportive treatment for his opiate withdrawal. We reviewed his last inpatient evaluation which was August 172019 and an excerpt is included below for context. Per his [place] [facility] [place]: History of Present Illness Lukasz Head is a 33 year old male Lukasz presented to the emergency room endorsing suicidal thoughts and active addiction, along with depression, and was admitted to the neuro-psychiatric unit for definitive treatment of these issues. At the time of his evaluation, he expressed that he wanted to leave and was not interested in being evaluated anymore. This was likely in part due to the fact that we would not prescribe Suboxone which was something he knows is our policy and has been the policy, and so there is a likelihood that this represents malingering and he just wanted to have a place to stay last night. His hospitalizations have frequently ended in one day stays or against medical advice discharges as he has something that he appears to be wanting or needing and if that is not met, then his request is to be discharged. He is generally hospitalized on a voluntary basis and not put on 96-hour holds, and so tends not to be grounds to keep him and today is the same situation. He has no interest in having an ongoing conversation about the situation, he just wants to leave. Included below is an excerpt of his last evaluation with this sign writer letterer or painter back in May of this year with more robust information about this patient. Per 05/21/2019 [facility] [place]: History of Present Illness Lukasz Head is a 33 year old male who presents after presenting to the emergency room with reports of suicidal thoughts and being unsure what he is going to do in his situation. This is his seventh inpatient hospitalization here at [facility] since 12/22/2017. His most recent ones have been very quick and often ended an AMA as he is trying to get back on Suboxone, has no resources and has struggled with the policy we have only prescribing Suboxone to people who have and active outpatient prescription or an outpatient physician who will identify themselves as the person that will prescribe doses after discharge from the hospital. He reports that since he got discharged right before Thanksgiving that he has been in survival mode. He reports he initially was using and buying Suboxone from off the street but the cost became prohibitive and so he went back to the other opiates/heroin. He reports that right now depressed, off his medication, struggling from anxiety and not really knowing what he can do. He reports that he contacted Dr. Hightower in [place] who reported a willingness to be his prescriber after discharge. We discussed a plan to contact him or her first thing Thursday morning. We agreed to restart his previous medication. We did have a discussion about the growing concern about the co-administration of Neurontin especially in high doses with opiates from a standpoint of concerns of lethality. We reviewed information from his last hospitalization some included below and he denies any significant changes in his psychosocial circumstances. Psychiatric history: He has 10+ hospitalizations with 7 here at [facility]. He denies having that many different medication trials however. Substance abuse history: He reports smoking half pack cigarettes a day, that he doesn't drink alcohol often, that he has marijuana every once in a while, it is not use cocaine, but he has methamphetamine sometimes, opiates are a daily challenge and he denies benzodiazepines with any regularity. He reports he has been to 4-5 rehabs in he's never had a DUI. Family history: He's not sure about his family's mental health issues. He reports addiction issues on both sides of family. He reports that he does have a first cousin who committed suicide on his mom's side. Developmental history: He denies any issues with his mother's or delivery of him, he learned to walk and talk to him at his development milestones on time, he denies speech therapy, learning support, emotional support or special education classes. Psychosocial history: He reports his mother and father were together when he was born with a fairly young in his life. He is the only product of their union. He has a half-brother through his mom and 2 half-sisters through his dad. He reports his childhood was also when he denies any emotional, physical or sexual abuse. He graduated from high school. Yet associates degree. 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 He endorses being heterosexual with his longest relationship between 3-1/2 years. He's been one time which was January 2019 and has 1 stepdaughter from that union that is 3 years old but he denies any biological children. Never in the and he denies any jain belief system. 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 He currently lives in a trailer with his and stepdaughter. Legal history: He has been in intermediate 2 times the longest time being 5-1/2 years for forgery. Per his March 01 hospitalization with this sign writer letterer or painter: History of Present Illness Date of Service: Mar 01, 2019 Chief Complaint: I need to get back on my medications. HPI: Lukasz presented to the inpatient unit after he was seen in the emergency room endorsing suicidal thoughts and a need to get his medication or he did not know what he would do with himself. He presented to the unit and was very driven to get Suboxone prescribed. We explained to him the policy that we only prescribe Suboxone and most other medications upon request when those medications are in fact currently being prescribed. In other words, the person has an active script. Additionally, with Suboxone if the person has a provider and they do not have an active script, but that provider is prepared to be the person providing the prescription at the time of discharge, we are also open to working with that outpatient provider. He was unable after many hours were spent by nursing and this sign writer letterer or painter to find or connect with his last prescriber, so we were unable to find set prescriber. We had made arrangements for treatment and were looking forward to assisting him moving forward, however later in the evening he determined that if he was not going to get the Suboxone he wanted to leave against medical advice. He was absent in lethality during his interview. He denied any interest in hurting himself or anyone else, only wanted to get back on track with his medication and he felt the Suboxone was the only chance that he had. He is known to the NPU from previous hospitalizations. We reviewed that information during his evaluation, and he denied any significant changes at this time. Per ED eval: HISTORY OF PRESENT ILLNESS Chief Complaint: SEIZURE. This occurred today. The patient has recovered. Seizure was not witnessed. Had a single isolated seizure. Not obtunded post-ictally. Did not recently change anticonvulsant medication. Patient states that he's not certain whether he had a seizure or not but believes he may have. He's had seizures before although not consistently when he would come off of alcohol. Patient states he's been having a hard time with depression and anxiety as he's cycle through addiction to opiates and alcohol. He adamantly denies any current homicidal or suicidal ideation. Similar symptoms previously. None. Recent medical care: The patient was seen recently at this facility (02/19/19 possible seizures). REVIEW OF SYSTEMS No fever, chest pain, palpitations, cough or difficulty breathing. No eye irritation, sore throat, abdominal pain, nausea or diarrhea. No black stools, difficulty with urination, skin rash, enlarged lymph nodes or vomiting. No bloody stools or joint pain. All other systems reviewed and are negative. PAST HISTORY See nurses notes. Hypertension. Seizures. Hepatitis. Mental illness. Depression. ( Psychosis). Surgeries: Fracture repair. Left upper extremity fracture repair. SOCIAL HISTORY Smoker- current status unknown (tobacco). Never smoker. Heavy alcohol use; consumes liquor by the bottle daily. History of drug use hx: heroin. ADDITIONAL NOTES The nursing notes have been reviewed. PHYSICAL EXAM Vital Signs: 02/28/2019 16:55 BP: 143/114. HR: 132. RR: 18. O2 saturation: 99%. Temp: 98.8 F. Pain level now: 0/10. Appearance: Alert. No acute distress. Eyes: Pupils equal, round and reactive to light. No nystagmus. Extraocular movements normal. ENT: Normal ENT inspection. TM's normal. Moist mucous membranes. Pharynx normal. Neck: Normal inspection. Neck supple. CVS: Normal heart rate and rhythm. Heart sounds normal. Pulses normal. Respiratory: No respiratory distress. Breath sounds normal. Abdomen: Soft and nontender. No organomegaly. Back: Normal inspection. Skin: Skin warm. Normal skin color. No rash. Extremities: Extremities exhibit normal ROM. No lower extremity edema. Neuro: Alert. Oriented X 3. Mood/affect normal. Speech normal. Cranial nerves normal (as tested). No cerebellar findings. No motor deficit. No sensory deficit. LABS, X-RAYS, AND EKG EKG: EKG time: (0114). Normal sinus rhythm. Rate: 108. Normal P waves. Normal JOSUÉ. Normal QRS complex. Normal axis. Normal ST and T waves, QT and QTc. Interpretation time: 0114. Laboratory Tests: Laboratory tests have been ordered, with results reviewed and considered in the medical decision making process. Urine Drug Screen: (MARBELLA: 03/01/2019 00:07)( MsgRcvd 03/01/2019 00:09) In Progress Comments: Room Number: 4 History of Present Illness Date of Service: Jan 08, 2019 Chief Complaint: I've been drinking a lot. I will get back on my buprenorphine. HPI: Lukasz Head is a 33-year-old male with a well-known history of polysubstance abuse who presented to the emergency room as described below. He states today that it is his intent to detox from the alcohol in preparation for his return to the [facility] Suboxone program. He has an appointment scheduled in 5 days. He reports that he has been free of narcotic use. He denies suicidal or homicidal ideation. He denies presence of auditory or visual hallucinations. He is a voluntary patient. We agreed on the plan below. Emergency room notes:Chief Complaint: GOT THE SHAKES . Wants to stop drinking. Wants to enter detox program. Symptoms started 3 days ago. The patient has had nausea, vomiting and seizure activity. The symptoms are described as severe. No injuries noted. Lukasz is a nice 33-year-old male who comes in requesting help with detox from alcohol. Patient states he has a history of opiate and methamphetamine abuse but the opiate problem is the biggest deal for him. He states that he uses alcohol to self medicate for pain. He states that he has an alcoholic and cannot stop on his own. He did try again to do so a day and a half ago but had a seizure. He denies any injuries from the seizure. Patient currently says he feels very sick, nervous and not right . Past mental health history Patient was admitted to the same unit in August 2018. Records provided the following information: it was discovered that he had been in [facility] outpatient program and had been receiving Suboxone but that he was frequently noncompliant and had a pattern of positive urine drug screens. It is not known whether he had been kicked out of the program or what his status was in the program. They did confirm that he did have a an appointment in 4 days in the outpatient service. However it was not clear whether they were willing to restart Suboxone. Verbal report from a member of that program was that they were insisting that he go to inpatient rehabilitation if he was to continue services there. His urine drug screen was positive for amphetamines and and benzodiazepines but negative for barbiturates. Blood alcohol level was below measurable limit. Patient remained for 3 days and then left AGAINST MEDICAL ADVICE. Meds NPU Home Medications Medication Instructions Recorded Confirmed Last Taken Type lorazepam 0.5 mg PO Q6H PRN 08/17/19 05/10/20 Unknown History fluoxetine 40 mg PO DAILY 05/10/20 05/10/20 Unknown History Allergies Allergy/AdvReac Type Severity Reaction Status Date / Time NSAIDS (Non-Steroidal Allergy ALGY-Anaphy Verified 05/10/20 22:34 Anti-Inflamma laxis PFSH NPU PFSH: Social History Smoking and tobacco status: current every day smoker Mental Status Exam MSE Comments: This is a well-nourished, well-developed, white male, in hospital scrubs with with adequate grooming, and eye contact. No abnormal movements except for some psychomotor agitation. Cooperative with exam in in mild to moderate distress. Speech was slightly decreased rate and volume. Mood described as I feel like she hit; affect slightly irritable. Thought process, organized. Thought content: patient denied any suicidal or homicidal ideation, there were no delusions reported or noted, patient denied any auditory or visual hallucinations. Attention, concentration, and memory appear intact but were not formally tested. He is alert and oriented times three. Insight and judgment are limited. Impulse control limited. Vitals/I&O/Wt Last Vital Signs Temp 98.1 F 05/11/20 21:07 Pulse 104 H 05/11/20 21:07 Resp 18 05/11/20 21:07 BP 124/80 05/11/20 21:07 Pulse Ox 97 05/11/20 21:07 Weight last 48 hrs Weight 81.647 kg Data NPU : 05/10/20 22:41 05/10/20 22:41 A&P Assessment and plan (1) Suicidal ideation: Status: Acute (2) Opioid withdrawal: Status: Acute (3) Depression: Status: Acute (4) Opiate dependence: Status: Acute (5) Anxiety: Status: Acute (6) Polysubstance abuse: Status: Acute (7) Alcohol use: Status: Acute (8) Alcohol withdrawal: Status: Acute (9) Cannabis use disorder, mild, abuse: Status: Acute (10) Methamphetamine abuse: Status: Acute (11) Withdrawal from methamphetamine: Status: Acute Additional A&P Information This is a 34-year-old white male with a long history of addiction and depression who presents with active addiction, active withdrawal reporting depression and suicidality. 1. Continue current medication. Start Prozac 20 mg p.o. every morning 2. Continue every 15 minute checks for safety. 3. Encourage individual, group and milieu therapies. 4. Encourage sober living treatment after discharge at the highest level of care to which she is willing to commit. 5. Continue CIWA protocol. Involuntary Hold Information 96 Hour Hold: 96 Hour Involuntary Admission: No Attestations NPU Medical Necessity Statement*: Inpatient hospitalization is medically necessary and the clinically appropriate intervention at this time. We will monitor medications and make changes as indicated. Patient will be in the hospital for over two midnights. Likely length of stay 3 to 5 days. Coding Level of Care Code Acute Junior Java Developer for [facility] Fwd Diagnoses Suicidal ideation R45.851 Opioid withdrawal F11.23 Depression F32.9 Opiate dependence F11.20 Anxiety F41.9 Polysubstance abuse F19.10 Alcohol use Z72.89 Alcohol withdrawal F10.239 Cannabis use disorder, mild, abuse F12.10 Methamphetamine abuse F15.10 Withdrawal from methamphetamine F15.23
[2020-05-12 06:00] VITALS: BP 106/57; PULSE 85; RESP 17; TEMP 36.8; O2SAT 96
[2020-05-12] MEDS: thiamine 100 mg Tablet PO (08:22)
[2020-05-12] MEDS: multivitamin therapeutic Tablet 1 TAB PO (08:22)
[2020-05-12] MEDS: fluoxetine 20 mg Capsule PO (08:22)
[2020-05-12] MEDS: folic acid 1 mg Tablet PO (08:22)
[2020-05-12] MEDS: nicotine 21 mg Patch 1 PATCH TRANSDERMA (11:08)
[2020-05-12] MEDS: LORazepam 2 mg Tablet PO ×2 (11:08→17:23)
[2020-05-12 14:00] VITALS: BP 149/80; PULSE 98; RESP 17; TEMP 36.8; O2SAT 98
--- NOTE | 2020-05-12 20:09 | P.PN_ITS ---
Subjective NPU Subjective: Interval history: Lukasz presented to the appointment reporting that he has set up something with a program down in [place] but he missed his intake because he did not have a ride. We agreed to call and find out the current status of disconnection so we called the person in charge of it whose name is Armando, was not available on the weekend and they told his we can call back on Thursday to assess the situation. He is doing fine on the medication but still struggling with withdrawal. Mental Status Exam MSE Comments: This is a well-nourished, well-developed, white male, in hospital scrubs with with adequate grooming, and eye contact. No abnormal movements except for mild psychomotor agitation. Cooperative with exam in in mild distress. Speech was normal rate and slightly decreased volume. Mood described as I feel crappy; affect slightly irritable. Thought process, organized. Thought content: patient denied any suicidal or homicidal ideation, there were no delusions reported or noted, patient denied any auditory or visual hallucinations. Attention, concentration, and memory appear intact but were not formally tested. He is alert and oriented times three. Insight and judgment are limited. Impulse control limited. Vitals/I&O/Wt Last Vital Signs Temp 98.3 F 05/12/20 14:00 Pulse 98 05/12/20 14:00 Resp 17 05/12/20 14:00 BP 149/80 05/12/20 14:00 Pulse Ox 98 05/12/20 14:00 Weight last 48 hrs Weight 81.647 kg Data NPU : 05/10/20 22:41 05/10/20 22:41 A&P Additional A&P Information (1) Suicidal ideation: (2) Opioid withdrawal: (3) Depression: (4) Opiate dependence: (5) Anxiety: (6) Polysubstance abuse: (7) Alcohol use: (8) Alcohol withdrawal: (9) Cannabis use disorder, mild, abuse: (10) Methamphetamine abuse: (11) Withdrawal from methamphetamine: Additional A&P Information This is a 34-year-old white male with a long history of addiction and depression who presents with active addiction, active withdrawal reporting depression and suicidality. 1. Continue current medication. Start Prozac 20 mg p.o. every morning 2. Continue every 15 minute checks for safety. 3. Encourage individual, group and milieu therapies. 4. Encourage sober living treatment after discharge at the highest level of care to which she is willing to commit. 5. Continue CIWA protocol. Involuntary Hold Information 96 Hour Hold: 96 Hour Involuntary Admission: No Attestations NPU Medical Necessity Statement*: Inpatient hospitalization is medically necessary and the clinically appropriate intervention at this time. We will monitor med ications and make changes as indicated. Likely length of stay 2-4 days. Coding Level of Care Code Acute Director Housekeeping for Luisa Michael
[2020-05-12] MEDS: hyDROXYzine 25 mg Capsule 50 MG PO (20:59)
[2020-05-12] MEDS: trazodone 50 mg Tablet PO (20:59)
[2020-05-12 22:00] VITALS: BP 129/85; PULSE 109; RESP 18; TEMP 36.6; O2SAT 96
[2020-05-13 06:00] VITALS: BP 119/74; PULSE 90; RESP 17; TEMP 36.7; O2SAT 96
[2020-05-13] MEDS: thiamine 100 mg Tablet PO (09:37)
[2020-05-13] MEDS: fluoxetine 20 mg Capsule PO (09:37)
[2020-05-13] MEDS: folic acid 1 mg Tablet PO (09:37)
[2020-05-13] MEDS: multivitamin therapeutic Tablet 1 TAB PO (09:37)
[2020-05-13] MEDS: OLANZapine 5 mg ODT PO ×2 (11:10→17:59)
[2020-05-13] MEDS: nicotine 21 mg Patch 1 PATCH TRANSDERMA (11:14)
--- NOTE | 2020-05-13 11:18 | PC.NURSE ---
Dr. Lowry said to give Patient PRN Zyprexa for anxiety / agitation.
[2020-05-13 14:00] VITALS: BP 114/65; PULSE 117; RESP 18; TEMP 37.1; O2SAT 96
--- NOTE | 2020-05-13 19:33 | P.PN_ITS ---
Subjective NPU Subjective: Interval history: Lukasz presents continuing to struggle with his withdrawal but appearing to be very committed to trying to connect to services that he has attempted to engage independently. We discussed the plan to call the program [facility] in [place] which was supposed to lead to him being accepted at [facility] first thing Thursday morning to make sure we can hopefully resume that as his plan for sober living treatment with continuation of his mental health recovery. Mental Status Exam MSE Comments: This is a well-nourished, well-developed, white male, in hos pital scrubs with with adequate grooming, and eye contact. No abnormal movements except for mild psychomotor agitation. Cooperative with exam in mild distress. Speech was normal rate and slightly decreased volume. Mood described as still struggling; affect slightly irritable. Thought process, organized. Thought content: patient denied any suicidal or homicidal ideation, there were no delusions reported or noted, patient denied any auditory or visual hallucinations. Attention, concentration, and memory appear intact but were not formally tested. He is alert and oriented times three. Insight and judgment are limited. Impulse control limited. Vitals/I&O/Wt Last Vital Signs Temp 98.8 F 05/13/20 14:00 Pulse 117 H 05/13/20 14:00 Resp 18 05/13/20 14:00 BP 114/65 05/13/20 14:00 Pulse Ox 96 05/13/20 14:00 Weight last 48 hrs Weight 95.254 kg Data NPU : 05/10/20 22:41 05/10/20 22:41 A&P Additional A&P Information (1) Suicidal ideation: (2) Opioid withdrawal: (3) Depression: (4) Opiate dependence: (5) Anxiety: (6) Polysubstance abuse: (7) Alcohol use: (8) Alcohol withdrawal: (9) Cannabis use disorder, mild, abuse: (10) Methamphetamine abuse: (11) Withdrawal from methamphetamine: Additional A&P Information This is a 34-year-old white male with a long history of addiction and depression who presents with active addiction, active withdrawal reporting depression and suicidality. 1. Continue current medication. 2. Continue every 15 minute checks for safety. 3. Encourage individual, group and milieu therapies. 4. Call [facility] with Armando [phone] and see if we can get him excepted again with a plan to go to [facility] after that detox. 5. Continue CIAK protocol. Involuntary Hold Information 96 Hour Hold: 96 Hour Involuntary Admission: No Attestations NPU Medical Necessity Statement*: Inpatient hospitalization is medically necessary and the clinically appropriate intervention at this time. We will monitor medications and make changes as indicated. Likely length of stay 1-3 days. Coding Level of Care Code Acute Automobile Taillight Assembler for Luisa Michael
[2020-05-13 19:52] VITALS: BP 129/75; PULSE 105; RESP 18; TEMP 36.9; O2SAT 97
[2020-05-13] MEDS: hyDROXYzine 25 mg Capsule 50 MG PO (20:54)
[2020-05-13] MEDS: trazodone 50 mg Tablet PO (20:54)
[2020-05-14 06:00] VITALS: BP 123/68; PULSE 88; RESP 18; TEMP 36.7; O2SAT 98
[2020-05-14] MEDS: folic acid 1 mg Tablet PO (08:14)
[2020-05-14] MEDS: thiamine 100 mg Tablet PO (08:14)
[2020-05-14] MEDS: fluoxetine 20 mg Capsule PO (08:14)
[2020-05-14] MEDS: multivitamin therapeutic Tablet 1 TAB PO (08:14)
[2020-05-14] MEDS: hyDROXYzine 25 mg Capsule 50 MG PO ×2 (11:24→20:06)
[2020-05-14] MEDS: nicotine 21 mg Patch 1 PATCH TRANSDERMA (12:53)
[2020-05-14 14:00] VITALS: BP 127/86; PULSE 98; RESP 20; TEMP 35.8; O2SAT 96
[2020-05-14] MEDS: LORazepam 2 mg Tablet PO (14:51)
--- NOTE | 2020-05-14 17:26 | P.PN_ITS ---
Subjective NPU Subjective: Interval history: Lukasz presents today reporting that he is anxious about how this is going to test and turn up technician. We spent hours electively on the phone trying to navigate the situation the program she been in contact with. Is looking like the detox facility will not be able to get him approval given that he is already in here and going through detox with our assistance. Additionally the plan was to going reports will accept him with likely discharge in 2 days likely. We discussed the risk benefits and alternatives of adding very low-dose Suboxone for couple days and discontinuing the Prozac, and he understood and agreed to proceed as is documented in his note. Mental Status Exam MSE Comments: This is a well-nourished, well-developed, white male, in hospital scrubs with with adequate grooming, and eye contact. No abnormal movements except for mild psychomotor agitation. Cooperative with exam in mild distress. Speech was normal rate and slightly decreased volume. Mood described as anxious and throwing; affect congruent. Thought process, organized. Thought content: patient denied any suicidal or homicidal ideation but continues to feel that things will take a horrible turn if he does not go directly to some program, there were no delusions reported or noted, patient denied any auditory or visual hallucinations. Attention, concentration, and memory appear intact but were not formally tested. He is alert and oriented times three. Insight and judgment are limited, but improving. Impulse control limited. Vitals/I&O/Wt Last Vital Signs Temp 96.4 F L 05/14/20 14:00 Pulse 98 05/14/20 14:00 Resp 20 H 05/14/20 14:00 BP 127/86 05/14/20 14:00 Pulse Ox 96 05/14/20 14:00 Weight last 48 hrs Weight 95.254 kg Data NPU : 05/10/20 22:41 05/10/20 22:41 A&P Additional A&P Information (1) Suicidal ideation: (2) Opioid withdrawal: (3) Depression: (4) Opiate dependence: (5) Anxiety: (6) Polysubstance abuse: (7) Alcohol use: (8) Alcohol withdrawal: (9) Cannabis use disorder, mild, abuse: (10) Methamphetamine abuse: (11) Withdrawal from methamphetamine: Additional A&P Information This is a 34-year-old white male with a long history of addiction and depression who presents with active addiction, active withdrawal and reporting depression and suicidality. 1. Continue current medication. We will decrease the Prozac to 10 mg p.o. every morning for 2 days then discontinue. We will initiate Suboxone 2 mg for likely 2 days then discharge on no medication 2. Continue every 15 minute checks for safety. 3. Encourage individual, group and milieu therapies. 4. Patient excepted at the treatment program that he discovered and we will taper off medication get him the best chance of success there. 5. Continue CIAZ protocol. Involuntary Hold Information 96 Hour Hold: 96 Hour Involuntary Admission: No Attestations NPU Medical Necessity Statement*: Inpatient hospitalization is medically necessary and the clinically appropriate intervention at this time. We will monitor medications and make changes as indicated. Likely length of stay 2 days. 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
[2020-05-14] MEDS: buprenorphine-naloxone 4-1 mg Film 0.5 EACH SUBLINGUAL (18:16)
[2020-05-14] MEDS: trazodone 50 mg Tablet PO (20:06)
[2020-05-14 20:20] VITALS: BP 132/86; PULSE 122; RESP 18; TEMP 36.6; O2SAT 96
[2020-05-15 06:00] VITALS: BP 116/64; PULSE 88; RESP 16; TEMP 36.9; O2SAT 98
[2020-05-15] MEDS: thiamine 100 mg Tablet PO (08:34)
[2020-05-15] MEDS: buprenorphine-naloxone 4-1 mg Film 0.5 EACH SUBLINGUAL (08:34)
[2020-05-15] MEDS: multivitamin therapeutic Tablet 1 TAB PO (08:34)
[2020-05-15] MEDS: fluoxetine 10 mg Capsule PO (08:34)
[2020-05-15] MEDS: folic acid 1 mg Tablet PO (08:34)
[2020-05-15] MEDS: nicotine 21 mg Patch 1 PATCH TRANSDERMA (09:52)
--- NOTE | 2020-05-15 12:35 | PM.NPN ---
Subjective NPU Subjective: Interval history: Lukasz presents today reporting that he is anxious but that he looks forward to the opportunity that is ahead of him. He expressed appreciation for the assistance both starting medications and then taking them away as he is going to go to a program that does not allow for medication. He has worked with his girlfriend to have a ride first thing in the morning. He appreciates us getting him from a to b endorses a commitment to his recovery. Mental Status Exam MSE Comments: This is a well-nourished, well-developed, white male, in hospital scrubs with adequate grooming, and eye contact. No abnormal movements except. Cooperative with exam in no acute distress. Speech was normal rate and volume. Mood described as anxious, better; affect congruent. Thought process, organized. Thought content: patient denied any suicidal or homicidal ideation, there were no delusions reported or noted, patient denied any auditory or visual hallucinations. Attention, concentration, and memory appear intact but were not formally tested. He is alert and oriented times three. Insight and judgment are improving. Impulse control limited but improving. Vitals/I&O/Wt Last Vital Signs Temp 98.5 F 05/15/20 06:00 Pulse 88 05/15/20 06:00 Resp 16 05/15/20 06:00 BP 116/64 05/15/20 06:00 Pulse Ox 98 05/15/20 06:00 Data NPU : 05/10/20 22:41 05/10/20 22:41 A&P Additional A&P Information (1) Suicidal ideation: (2) Opioid withdrawal: (3) Depression: (4) Opiate dependence: (5) Anxiety: (6) Polysubstance abuse: (7) Alcohol use: (8) Alcohol withdrawal: (9) Cannabis use disorder, mild, abuse: (10) Methamphetamine abuse: (11) Withdrawal from methamphetamine: Additional A&P Information This is a 34-year-old white male with a long history of addiction and depression who presents with active addiction, active withdrawal and reporting depression and suicidality. 1. Continue current medication. We will discontinue medications at discharge and give his last dose of Prozac p.o. and Suboxone 2 mg sublingual right before discharge. 2. Continue every 15 minute checks for safety. 3. Encourage individual, group and milieu therapies. 4. Patient excepted at the treatment program that he discovered and we will taper off medication get him the best chance of success there. 5. Continue CIWA protocol. Involuntary Hold Information 96 Hour Hold: 96 Hour Involuntary Admission: No Attestations NPU Medical Necessity Statement*: Inpatient hospitalization is medically necessary and the clinically appropriate intervention at this time. We will monitor medications and make changes as indicated. Discharge tomorrow morning at 6 AM. 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
[2020-05-15 14:00] VITALS: BP 128/70; PULSE 93; RESP 20; TEMP 36.1; O2SAT 97
[2020-05-15] MEDS: hyDROXYzine 25 mg Capsule 50 MG PO ×2 (18:05→20:20)
[2020-05-15] MEDS: nicotine 2 mg Gum BUCCAL (18:52)
[2020-05-15 19:46] VITALS: BP 116/70; PULSE 81; RESP 19; TEMP 36.6; O2SAT 96
[2020-05-15] MEDS: trazodone 50 mg Tablet PO (20:21)
--- NOTE | 2020-05-16 05:31 | PM.NDC ---
Diagnoses at Discharge Discharge Diagnosis (1) Suicidal ideation: Status: Acute (2) Opioid withdrawal: Status: Acute (3) Depression: Status: Acute (4) Opiate dependence: Status: Acute (5) Anxiety: Status: Acute (6) Polysubstance abuse: Status: Acute (7) Alcohol use: Status: Acute (8) Alcohol withdrawal: Status: Acute (9) Cannabis use disorder, mild, abuse: Status: Acute (10) Methamphetamine abuse: Status: Acute (11) Withdrawal from methamphetamine: Status: Acute Reason for Visit Reason for Visit: si Brief History: History of Present Illness Lukasz Head is a 34 year old male who presented to the emergency department with the following report: Chief Complaint: Psychiatric Symptoms Stated Complaint: si Time Seen by Provider: 05/10/20 22:27 Source: patient and EMS Mode of arrival: EMS Limitations: no limitations History of Present Illness: HPI Narrative: 34-year-old male states that he is a IV opioid user and chronic drinker. He states he has been trying to stop has been having extreme anxiety along with depression. He states he has had some hallucinations and has been having suicidal thoughts. He has no specific plan but states he has been having increasing thoughts and feels like he needs psychiatric help. Denies any worsening improving factors. He has no vomiting. MD complaint: suicidal ideation Associated symptoms: Reports depression. He was admitted to the neuropsychiatric unit for definitive treatment of those issues. Lukasz is in today reporting that things went well for period of time. He reports that at 1 point he was at a Suboxone clinic but that is in a couple of months. He endorses he has been getting Suboxone still and is worried about his withdrawal over the next several days. His UDS was positive for benzodiazepines, THC, amphetamines, alcohol, and he reports the use of the Suboxone which would not have shown up on the screen. We discussed him being on the CIWA protocol as he expressed anxiety about withdraw from alcohol and benzodiazepines. We discussed the complication of having multiple drugs to withdrawal from from a standpoint of giving him supportive medication. We also discussed working with the treatment team to find him some kind of ongoing sober living treatment option and he was open to that idea. We agreed we would review his chart and consider restarting his Prozac in the morning but likely at a lower dose than he had been on. We discussed the risks, benefits and alternatives of multiple medication interventions and he understood and agreed to proceed as is documented in this note. We discussed our policy on Suboxone and that we would work with the social work team to possibly find him a provider which might allow us to assist him prior to discharge but he may have to except that he will only have supportive treatment for his opiate withdrawal. We reviewed his last inpatient evaluation which was August 172019 and an excerpt is included below for context. Per his 08/18/2019 [facility] inpatient eval: History of Present Illness Lukasz Head is a 33 year old male Lukasz presented to the emergency room endorsing suicidal thoughts and active addiction, along with depression, and was admitted to the neuro-psychiatric unit for definitive treatment of these issues. At the time of his evaluation, he expressed that he wanted to leave and was not interested in being evaluated anymore. This was likely in part due to the fact that we would not prescribe Suboxone which was something he knows is our policy and has been the policy, and so there is a likelihood that this represents malingering and he just wanted to have a place to stay last night. His hospitalizations have frequently ended in one day stays or against medical advice discharges as he has something that he appears to be wanting or needing and if that is not met, then his request is to be discharged. He is generally hospitalized on a voluntary basis and not put on 96-hour holds, and so tends not to be grounds to keep him and today is the same situation. He has no interest in having an ongoing conversation about the situation, he just wants to leave. Included below is an excerpt of his last evaluation with this writer technical publications back in May of this year with more robust information about this patient. Per 05/21/2019 [facility] IP eval: History of Present Illness Lukasz Head is a 33 year old male who presents after presenting to the emergency room with reports of suicidal thoughts and being unsure what he is going to do in his situation. This is his seventh inpatient hospitalization here at [facility] since 12/22/2017. His most recent ones have been very quick and often ended an AMA as he is trying to get back on Suboxone, has no resources and has struggled with the policy we have only prescribing Suboxone to people who have and active outpatient prescription or an outpatient physician who will identify themselves as the person that will prescribe doses after discharge from the hospital. He reports that since he got discharged right before [place] that he has been in survival mode. He reports he initially was using and buying Suboxone from off the street but the cost became prohibitive and so he went back to the other opiates/heroin. He reports that right now depressed, off his medication, struggling from anxiety and not really knowing what he can do. He reports that he contacted Dr. Hightower in [place] who reported a willingness to be his prescriber after discharge. We discussed a plan to contact him or her first thing Thursday morning. We agreed to restart his previous medication. We did have a discussion about the growing concern about the co-administration of Neurontin especially in high doses with opiates from a standpoint of concerns of lethality. We reviewed information from his last hospitalization some included below and he denies any significant changes in his psychosocial circumstances. Psychiatric history: He has 10+ hospitalizations with 7 here at [facility]. He denies having that many different medication trials however. Substance abuse history: He reports smoking half pack cigarettes a day, that he doesn't drink alcohol often, that he has marijuana every once in a while, it is not use cocaine, but he has methamphetamine sometimes, opiates are a daily challenge and he denies benzodiazepines with any regularity. He reports he has been to 4-5 rehabs in he's never had a DUI. Family history: He's not sure about his family's mental health issues. He reports addiction issues on both sides of family. He reports that he does have a first cousin who committed suicide on his mom's side. Developmental history: He denies any issues with his mother's or delivery of him, he learned to walk and talk to him at his development milestones on time, he denies speech therapy, learning support, emotional support or special education classes. Psychosocial history: He reports his mother and father were together when he was born with a fairly young in his life. He is the only product of their union. He has a half-brother through his mom and 2 half-sisters through his dad. He reports his childhood was also when he denies any emotional, physical or sexual abuse. He graduated from high school. Yet associates degree. 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 He endorses being heterosexual with his longest relationship between 3-1/2 years. He's been one time which was January 2019 and has 1 stepdaughter from that union that is 3 years old but he denies any biological children. Never in the and he denies any advent belief system. 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 He currently lives in a trailer with his and stepdaughter. Legal history: He has been in [facility] 2 times the longest time being 5-1/2 years for forgery. Per his March 01 hospitalization with this writer technical publications: History of Present Illness Date of Service: Mar 01, 2019 Chief Complaint: I need to get back on my medications. HPI: Lukasz presented to the inpatient unit after he was seen in the emergency room endorsing suicidal thoughts and a need to get his medication or he did not know what he would do with himself. He presented to the unit and was very driven to get Suboxone prescribed. We explained to him the policy that we only prescribe Suboxone and most other medications upon request when those medications are in fact currently being prescribed. In other words, the person has an active script. Additionally, with Suboxone if the person has a provider and they do not have an active script, but that provider is prepared to be the person providing the prescription at the time of discharge, we are also open to working with that outpatient provider. He was unable after many hours were spent by nursing and this writer technical publications to find or connect with his last prescriber, so we were unable to find set prescriber. We had made arrangements for treatment and were looking forward to assisting him moving forward, however later in the evening he determined that if he was not going to get the Suboxone he wanted to leave against medical advice. He was absent in lethality during his interview. He denied any interest in hurting himself or anyone else, only wanted to get back on track with his medication and he felt the Suboxone was the only chance that he had. He is known to the NPU from previous hospitalizations. We reviewed that information during his evaluation, and he denied any significant changes at this time. Per ED eval: HISTORY OF PRESENT ILLNESS Chief Complaint: SEIZURE. This occurred today. The patient has recovered. Seizure was not witnessed. Had a single isolated seizure. Not obtunded post-ictally. Did not recently change anticonvulsant medication. Patient states that he's not certain whether he had a seizure or not but believes he may have. He's had seizures before although not consistently when he would come off of alcohol. Patient states he's been having a hard time with depression and anxiety as he's cycle through addiction to opiates and alcohol. He adamantly denies any current homicidal or suicidal ideation. Similar symptoms previously. None. Recent medical care: The patient was seen recently at this facility (02/19/19 possible seizures). REVIEW OF SYSTEMS No fever, chest pain, palpitations, cough or difficulty breathing. No eye irritation, sore throat, abdominal pain, nausea or diarrhea. No black stools, difficulty with urination, skin rash, enlarged lymph nodes or vomiting. No bloody stools or joint pain. All other systems reviewed and are negative. PAST HISTORY See nurses notes. Hypertension. Seizures. Hepatitis. Mental illness. Depression. ( Psychosis). Surgeries: Fracture repair. Left upper extremity fracture repair. SOCIAL HISTORY Smoker- current status unknown (tobacco). Never smoker. Heavy alcohol use; consumes liquor by the bottle daily. History of drug use hx: heroin. ADDITIONAL NOTES The nursing notes have been reviewed. PHYSICAL EXAM Vital Signs: 02/28/2019 16:55 BP: 143/114. HR: 132. RR: 18. O2 saturation: 99%. Temp: 98.8 F. Pain level now: 0/10. Appearance: Alert. No acute distress. Eyes: Pupils equal, round and reactive to light. No nystagmus. Extraocular movements normal. ENT: Normal ENT inspection. TM's normal. Moist mucous membranes. Pharynx normal. Neck: Normal inspection. Neck supple. CVS: Normal heart rate and rhythm. Heart sounds normal. Pulses normal. Respiratory: No respiratory distress. Breath sounds normal. Abdomen: Soft and nontender. No organomegaly. Back: Normal inspection. Skin: Skin warm. Normal skin color. No rash. Extremities: Extremities exhibit normal ROM. No lower extremity edema. Neuro: Alert. Oriented X 3. Mood/affect normal. Speech normal. Cranial nerves normal (as tested). No cerebellar findings. No motor deficit. No sensory deficit. LABS, X-RAYS, AND EKG EKG: EKG time: (011). Normal sinus rhythm. Rate: 108. Normal P waves. Normal JOSUÉ. Normal QRS complex. Normal axis. Normal ST and T waves, QT and QTc. Interpretation time: 0114. Laboratory Tests: Laboratory tests have been ordered, with results reviewed and considered in the medical decision making process. Urine Drug Screen: (MARBELLA: 03/01/2019 00:07)( MsgRcvd 03/01/2019 00:09) In Progress Comments: Room Number: 4 History of Present Illness Date of Service: Jan 08, 2019 Chief Complaint: I've been drinking a lot. I will get back on my buprenorphine. HPI: Lukasz Head is a 33-year-old male with a well-known history of polysubstance abuse who presented to the emergency room as described below. He states today that it is his intent to detox from the alcohol in preparation for his return to the [facility] Suboxone program. He has an appointment scheduled in 5 days. He reports that he has been free of narcotic use. He denies suicidal or homicidal ideation. He denies presence of auditory or visual hallucinations. He is a voluntary patient. We agreed on the plan below. Emergency room notes:Chief Complaint: GOT THE SHAKES . Wants to stop drinking. Wants to enter detox program. Symptoms started 3 days ago. The patient has had nausea, vomiting and seizure activity. The symptoms are described as severe. No injuries noted. Lukasz is a nice 33-year-old male who comes in requesting help with detox from alcohol. Patient states he has a history of opiate and methamphetamine abuse but the opiate problem is the biggest deal for him. He states that he uses alcohol to self medicate for pain. He states that he has an alcoholic and cannot stop on his own. He did try again to do so a day and a half ago but had a seizure. He denies any injuries from the seizure. Patient currently says he feels very sick, nervous and not right . Past mental health history Patient was admitted to the same unit in August 2018. Records provided the following information: it was discovered that he had been in [facility] outpatient program and had been receiving Suboxone but that he was frequently noncompliant and had a pattern of positive urine drug screens. It is not known whether he had been kicked out of the program or what his status was in the program. They did confirm that he did have a an appointment in 4 days in the outpatient service. However it was not clear whether they were willing to restart Suboxone. Verbal report from a member of that program was that they were insisting that he go to inpatient rehabilitation if he was to continue services there. His urine drug screen was positive for amphetamines and and benzodiazepines but negative for barbiturates. Blood alcohol level was below measurable limit. Patient remained for 3 days and then left AGAINST MEDICAL ADVICE. Hospital Course Hospital Course Lukasz presented to the emergency department with active addiction depression and anxiety and suicidal thoughts. He was admitted to the neuropsychiatric unit for definitive treatment of those issues. He slowly acclimated to the individual, group and milieu therapies provided. We had restarted Prozac but as we worked with him to get into a sober living program it ended up being a program that does not allow any psychotropic medications. So he was tapered off of the Prozac and he was given Suboxone 2 mg sublingual for 3 days to assist in his opiate withdrawal. He was discharged with no medications and he was able to contract for safety prior to discharge. During the hospitalization, patient had routine laboratory studies which were within normal limits except for few outliers. Additionally there was a general medical evaluation which was also within normal limits and revealed no new acute processes. Discharge Summary: At the time of discharge, he was absent lethality and psychosis. Mood and anxiety were well managed. Patient endorsed a plan to avoid all drugs of abuse and follow-up with the aftercare recommendations of the treatment team. Patient was evaluated and deemed to be absent credible lethality, and had achieved the maximum benefit from an inpatient hospitalization, so was discharged. Involuntary Hold Information 96 Hour Hold: 96 Hour Involuntary Admission: No Mental Status Exam MSE Comments: This is a well-nourished, well-developed, white male, in hospital scrubs with adequate grooming, and eye contact. No abnormal movements except. Cooperative with exam in no acute distress. Speech was normal rate and volume. Mood described as anxious but better; affect congruent. Thought process, organized. Thought content: patient denied any suicidal or homicidal ideation, there were no delusions reported or noted, patient denied any auditory or visual hallucinations. Attention, concentration, and memory appear intact but were not formally tested. He is alert and oriented times three. Insight and judgment are improving. Impulse control limited but improving. Discharge Data Vitals: Last Vital Signs Temp 97.9 F 05/15/20 19:46 Pulse 81 05/15/20 19:46 Resp 19 H 05/15/20 19:46 BP 116/70 05/15/20 19:46 Pulse Ox 96 05/15/20 19:46 Discharge Plan Discharge Patient Disposition: Home Condition: Stable Prescriptions: Discontinued lorazepam 0.5 mg tablet 0.5 mg PO Q6H PRN (Reason: sensation of a seizure) RF: 0 fluoxetine 40 mg capsule 40 mg PO DAILY RF: 0 Discharge Orders: Discharge Order (Routine); Ordered 05/16/20 Ordered By: Saeid Lowry Referrals: [facility] [Other] (Will have ride to take you to the [facility] office. From there they will have staff bring you to their campus.) Discharge Diet: Regular Discharge Activity: Resume usual activity Discharge Attestations NPU Time Spent in Discharge Care*: less than 30 min Specific Discharge Activities: Specific discharge activities: educating patient, discussing with cyanide case hardener/social workers/dc planners, documenting/other paperwork and evaluating patient/reviewing data Coding Level of Care Code Acute Glass Ribbon Machine Operator Assistant for Margo Fwd Diagnoses Suicidal ideation R45.851 Opioid withdrawal F11.23 Depression F32.9 Opiate dependence F11.20 Anxiety F41.9 Polysubstance abuse F19.10 Alcohol use Z72.89 Alcohol withdrawal F10.239 Cannabis use disorder, mild, abuse F12.10 Methamphetamine abuse F15.10 Withdrawal from methamphetamine F15.23
[2020-05-16] MEDS: fluoxetine 10 mg Capsule PO (05:42)
[2020-05-16] MEDS: buprenorphine-naloxone 4-1 mg Film 0.5 EACH SUBLINGUAL (05:42)
[2020-05-16 05:51] VITALS: BP 122/67; PULSE 88; RESP 18; TEMP 36.6; O2SAT 96
[2020-05-16 06:07] VITALS: BP 122/67; PULSE 88; RESP 18; TEMP 36.6; O2SAT 96
[2020-05-16 06:19] VITALS: BP 122/67; PULSE 88; RESP 18; TEMP 36.6; O2SAT 96
== END 2020-05-16 06:05 | disposition home or self-care (01) | DRG 881 ==
LOC: ER 23:44 → NP 23:45
PROVIDERS: Admitting Provider Psychiatry & Neurology Psychiatry; Emergency Provider Emergency Medicine; Visit Provider Psychiatry & Neurology Psychiatry
DX: F32.9 Major depressive disorder, single episode, unspecified (principal); F10.239 Alcohol dependence with withdrawal, unspecified; F11.23 Opioid dependence with withdrawal; F15.13 Other stimulant abuse with withdrawal; R45.851 Suicidal ideations; F41.9 Anxiety disorder, unspecified; F12.10 Cannabis abuse, uncomplicated; F17.210 Nicotine dependence, cigarettes, uncomplicated
CPT/HCPCS: 12345; 80053; 80306; 80307; 85025; 93005; 96372; 99284; J0573; J2060; J3411